=== PATIENT | male | born 1965 | race Hispanic/Latino ===

== ENCOUNTER 2016-12-07 14:40 | Observation (INO) | payer OTHER, SELFPAY ==
[2016-12-07 15:02] LABS: #Basophils 0.1 thou/uL (0.0-0.2); #Eosinphils 0.3 thou/uL (0.0-0.7); #Lymphocytes 3.1 thou/uL (1.20-3.40); #Monocytes 0.7 thou/uL (0.11-0.59); #Neutrophils 5.1 thou/uL (1.40-6.50); %Basophils 1.3 % (0.0-1.0); %Eosinophils 3.2 % (0.0-10.0); %Lymphocytes 32.9 % (21.0-51.0); %Monocytes 7.8 % (0.0-10.0); Hematocrit 48.1 % (42.0-52.0); Mean Platelet Volume 8.1 fL (7.4-10.4); Red Blood Cell (RBC) Count 5.35 mill/uL (4.70-6.10); White Blood Cell (WBC) Count 9.3 thou/uL (4.8-10.8)
--- NOTE | 2016-12-07 15:19 | RAD ---
FRONTAL VIEW CHEST: Comparison: 03-16-16 Indication: Chest pain. FINDINGS: There is mild enlargement of the cardiac silhouette. No significant vascular congestion. Lungs are c lear. Density at the inferior left hemithorax likely related to pericardial fat pad. Stable eventrat ion of medial aspect of the right hemidiaphragm. IMPRESSION: No lobar consolidation. POS: [facility]
[2016-12-07] MEDS ORDERED: Nitroglycerin 0.4 MG TAB (25 Tab Bottle) ONE (15:25)
[2016-12-07 15:27] LABS: Troponin I 0.014 ng/mL (< 0.028)
[2016-12-07 15:29] LABS: ALT (SGPT) 78 U/L (8-55); AST (SGOT) 62 U/L (5-34); Alkaline Phosphatase 124 U/L (40-150); Anion Gap 17 mmol/L (10-20); BUN (Urea Nitrogen) 14 mg/dL (8.9-20.6); Bilirubin, Total 0.5 mg/dL (0.2-1.2); Calc. Creatinine Clearance 0 mL/min (70-130); Calcium 9.3 mg/dL (7.8-10.44); Carbon Dioxide 24 mmol/L (22-29); Chloride 100 mmol/L (98-107); Estimated GFR-MDRD 79; Globulin 4.1 g/dL (2.4-3.5); Lipase 25 U/L (8-78); Protein, Total 7.8 g/dL (6.0-8.3)
[2016-12-07] MEDS ORDERED: Nitroglycerin 2% Ointment 1 INCH/1 GM Packet ONE (16:31)
[2016-12-07] MEDS ORDERED: Acetaminophen 500 MG TAB ONE (16:38)
[2016-12-07] MEDS ORDERED: Ondansetron HCl/PF 4 MG/2 ML Vial IVP PRN (17:34)
[2016-12-07] MEDS ORDERED: Ondansetron ODT 4 MG TAB PO PRN (17:34)
[2016-12-07] MEDS ORDERED: cloNIDine HCl 0.1 MG TAB PO PRN (17:34)
[2016-12-07 17:57] VITALS: BMI 46.5
[2016-12-07] MEDS ORDERED: FLU VACC QS2017-18 36 mo. & older 0.5 ML SYRINGE IM ONE (18:45)
[2016-12-07] MEDS: Famotidine 20 MG TAB PO SCH (20:30)
[2016-12-07] MEDS: Gabapentin 300 MG CAP PO SCH (20:30)
[2016-12-07] MEDS: Acetaminophen 500 MG TAB PO PRN (20:41)
[2016-12-07 21:21] LABS: Troponin I 0.015 ng/mL (< 0.028)
--- NOTE | 2016-12-07 23:59 | HP ---
DATE OF ADMISSION: 12/07/2016 PRIMARY CARE PROVIDER: at the [facility] in [place], [place]. CHIEF COMPLAINT: Chest pain. HISTORY OF PRESENT ILLNESS: This is a 51-year-old male who presents to [facility] with recurrent chest pain. Patient is well known to the hospitalist service with mul tiple admissions for chest pain over the last 10 months. Patient has undergone 2 left heart cardiac catheterizations in March and June 2016 showing mild coronary artery disease with recommendation s for medical management. Patient states that he took his regular home medications in the early mor hemal hours of 12/07/2016 developing some diaphoresis and chest tightness after checking his blood pr essure noted to be in the 200 systolic range. The patient presented to the emergency room for evalu ation after his family members became concerned for possible heart attack or stroke. The patient in itially localizes the pain to the substernal and central chest area with some radiation to the back. The patient states that he slipped on some stairs near his home straining his back, presenting to his primary care provider, receiving oral pain medications in the last 24-48 hours. The patient did exhibit some shortness of breath, diaphoresis with the symptoms receiving some relief after treatme nt in the emergency room to include transdermal nitroglycerin, sublingual nitroglycerin and extra st rength Tylenol. The patient states he has been compliant with his chronic medication regimen. Farnaz ent denies any recent travel history, increased cough, congestion, fever or recent trauma. PAST MEDICAL HISTORY: 1. Recurrent chest pain, questionable angina. 2. Nonischemic cardiomyopathy. 3. Tobacco abuse. 4. Morbid obesity. 5. Dyslipidemia. 6. History of hepatitis C, status post partial treatment. 7. Chronic transaminitis. 8. Gastroesophageal reflux disease. 9. Chronic back pain. PAST SURGICAL HISTORY: 1. Status post cholecystectomy. 2. Status post rotator cuff repair. 3. Status post right hand surgery. 4. Status post left heart catheterization in March and June 2016. CURRENT MEDICATIONS: Based on previous admission; 1. Aspirin 325 mg 1 tab p.o. daily. 2. Gabapentin 300 mg 1 tab p.o. t.i.d. 3. Lisinopril/hydrochlorothiazide 20/25 mg 1 tab p.o. daily. 4. Metoprolol tartrate 25 mg 1 tab p.o. b.i.d. 5. Pravachol 20 mg p.o. at bedtime. 6. Ultram 50 mg 1 tab p.o. q.6 hours p.r.n. pain. ALLERGIES: No known drug allergies. FAMILY HISTORY: Positive for coronary artery disease in father who of complications of heart f ailure at the age of 43. SOCIAL HISTORY: The patient is , accompanied by his . History of marijuana use. Smoked up to a pack of cigarettes daily. Quit smoking over 10 years prior to this evaluation. No alcohol use. Works as a construction driver. REVIEW OF SYSTEMS: The following complete review of systems was negative, unless otherwise mentione d in the HPI or below: Constitutional: Weight loss or gain, ability to conduct usual activities. Skin: Rash, itching. Eyes: Double vision, pain. ENT/Mouth: Nose bleeding, neck stiffness, pain, tenderness. Cardiovascular: Palpitations, dyspnea on exertion, orthopnea. Respiratory: Shortnes s of breath, wheezing, cough, hemoptysis, fever or night sweats. Gastrointestinal: Poor appetite, abdominal pain, heartburn, nausea, vomiting, constipation, or diarrhea. Genitourinary: Urgency, frequency, dysuria, nocturia. Musculoskeletal: Pain, swelling. Neurologic/Psychiatric: Anxiety, depression. Allergy/Immunolo gic: Skin rash, bleeding tendency. Otherwise, negative except as stated per HPI. PHYSICAL EXAMINATION: VITAL SIGNS: On admission, blood pressure 104/65, pulse 57, respiratory rate 18, temperature 98.5 d egrees Fahrenheit, O2 saturation 94% on room air. GENERAL APPEARANCE: This is a 51-year-old male, alert and oriented x3, pleasant, conversan t, in no acute distress. HEENT: Pupils are equal, round, and reactive to light and accommodation. Extraocular muscles are i ntact. No scleral icterus, no conjunctival injection. Nares patent. OP is clear. Teeth in fair r epair. NECK: Supple, no cervical adenopathy, no thyromegaly, no carotid bruits, no JVD appreciated. Cervi conrad spine with full active and passive range of motion. CHEST: Lungs are clear to auscultation bilaterally with diminished breath sounds in the bases bilat erally. CARDIOVASCULAR: S1, S2, without noted murmur. Heart sounds distant. Positive tenderness to palpat ion of the anterior chest wall in the parasternal region. ABDOMEN: Obese, soft, nontender, nondistended. Bowel sounds are positive in all four quadrants. L andmarks are difficult to palpate due to patient's body habitus. EXTREMITIES: Warm and dry with fair turgor. No clubbing, cyanosis or asymmetric edema appreciated. Pulses palpable distally at the dorsalis pedis, posterior tibial, and popliteal arteries bilateral ly. Capillary refill less than 2 seconds. NEUROLOGIC: Cranial nerves II-XII are grossly intact. No focal or lateralizing signs appreciated. PERTINENT LABORATORY AND X-RAY FINDINGS: Sodium 136, potassium 4.5, chloride 100, CO2 of 24, BUN 14 , creatinine 1.0, glucose 158, calcium 9.3, AST 62, ALT of 78, alkaline phosphatase 124, total CK 3 85, CK-MB 11.8, troponin I of 0.014. BNP 50. Albumin 3.7, lipase 25. CBC showed a white blood dimitris l count 9.3, hemoglobin 16, hematocrit 48, platelet count 189 with 55% neutrophils. Portable chest x-ray dated 12/07/2016 showed no acute cardiopulmonary process. Left heart catheterization dated showed normal coronary anatomy. Nonischemic cardiomyopathy. A 2D transthoracic echocardio gram dated 03/17/2016 showed ejection fraction of 35-40%. Mild to moderate mitral valve regurgitati on. EKG dated 12/07/2016 by my interpretation shows sinus bradycardia with heart rates in the 50s. Normal R-wave progression noted in the precordial leads. Normal axis. No acute ST-T wave changes appreciated. ASSESSMENT AND PLAN: 1. Chest pain. Patient will be observed on the telemetry unit. Exact etiology unclear. Patient w ith component of chest wall and musculoskeletal chest pain. We will continue serial cardiac enzymes q.3 hours x2. Continue aspirin 325 mg daily. We will consult Cardiology Service in the a.m. for a ny further recommendations given patient's recent left heart cardiac catheterization in 03/2016. Yrn blank may benefit from a long-acting nitrate on discharge. 2. Hypertension. We will resume patient's home antihypertensive regimen and monitor clinical respo nse. 3. Hyperlipidemia. Check fasting lipid profile in the a.m. Continue Pravachol 20 mg p.o. at [facility]. 4. Morbid obesity. We will offer dietary counseling. Low-fat diet. 5. Transaminitis. Chronic upon review of the electronic medical record. Continue symptomatic and supportive management. 6. Prophylaxis. Sequential compression devices while in bed. Pepcid 20 mg p.o. b.i.d. 8. CODE STATUS IS FULL. Surrogate medical decision maker is patient's spouse.
[2016-12-08] MEDS: Acetaminophen 500 MG TAB PO PRN ×2 (03:27→08:53)
[2016-12-08 04:36] LABS: Anion Gap 13 mmol/L (10-20); BUN (Urea Nitrogen) 15 mg/dL (8.9-20.6); Calc. Creatinine Clearance 165 mL/min (70-130); Calcium 8.9 mg/dL (7.8-10.44); Carbon Dioxide 27 mmol/L (22-29); Chloride 102 mmol/L (98-107); Cholesterol 133 mg/dl (< 200 Desired); Estimated GFR-MDRD 72; LDL Cholesterol, Calculated 40 mg/dL
[2016-12-08 04:57] LABS: Band 3 % (5-11); Hematocrit 48.8 % (42.0-52.0); Mean Platelet Volume 8.1 fL (7.4-10.4); Neutrophil 55 % (42-75); Red Blood Cell (RBC) Count 5.41 mill/uL (4.70-6.10); White Blood Cell (WBC) Count 9.1 thou/uL (4.8-10.8)
[2016-12-08 07:49] VITALS: BP 165/94; TEMP 97.8
[2016-12-08] MEDS: Famotidine 20 MG TAB PO SCH (08:52)
[2016-12-08] MEDS: Gabapentin 300 MG CAP PO SCH (08:52)
[2016-12-08] MEDS ORDERED: Aspirin 325 MG TAB PO SCH (09:00)
[2016-12-08] MEDS ORDERED: Furosemide 20 MG TAB PO SCH (09:00)
[2016-12-08] MEDS ORDERED: Pravastatin Sodium 20 MG TAB PO SCH (09:00)
[2016-12-08] MEDS ORDERED: Multivitamin W/ Minerals 1 TAB PO SCH (09:00)
[2016-12-08] MEDS ORDERED: Lisinopril/Hydrochlorothiazide 20/25 mg Tablet PO SCH (09:00)
[2016-12-08] MEDS ORDERED: Metoprolol Tartrate 25 MG TAB PO SCH (09:00)
[2016-12-08] MEDS ORDERED: Non-Formulary Item 1 EACH (Potassium [Potassium] 99 MG) PO SCH (09:00)
--- NOTE | 2016-12-08 13:48 | DIS ---
DATE OF ADMISSION: 12/07/2016 DATE OF DISCHARGE: 12/08/2016 DISCHARGE DIAGNOSES: 1. Chest pain secondary to musculoskeletal origin. 2. Hypertension, labile. 3. Morbid obesity. 4. Coronary artery disease, chronic and stable. 5. Nonischemic cardiomyopathy, compensated. 6. Tobacco use. 7. Hyperlipidemia with primary hypertriglyceridemia. CONSULTATION: Dr. Engle with Cardiology Service. PERTINENT LABORATORY DATA AND X-RAY FINDINGS: Troponin I negative x3. BNP 50. Total cholesterol 1 33, triglycerides 330, HDL 27, LDL 40. CBC within normal limits. Portable chest x-ray dated 2016 showed no acute cardiopulmonary process. HOSPITAL COURSE: Patient was observed on the telemetry unit after initially presenting with chest p ain in the context of known mild coronary artery disease, medically managed. The patient underwent serial cardiac enzymes, which were negative x3. Telemetry monitoring showed sinus bradycardia witho ut evidence of acute arrhythmia or dysrhythmia. The patient was evaluated by the Cardiology Service due to history of mild coronary artery disease and recent left heart cardiac catheterization in 2016. Current recommendations were to continue medical management and daily aspirin. No current ev idence to suggest acute coronary syndrome and patient's symptomatology consistent with musculoskelet al origin chest pain. The patient overall clinically stable and ready for discharge on 12/08/2016. DISCHARGE MEDICATIONS: 1. Aspirin 325 mg 1 tablet p.o. daily. 2. Lasix 20 mg 1 tablet p.o. daily. 3. Neurontin 300 mg p.o. t.i.d. 4. DuoNeb 3 mL nebulized q.i.d. p.r.n. 5. Lisinopril/hydrochlorothiazide 20/25 mg 1 tablet p.o. daily. 6. Lopressor 50 mg 1 tablet p.o. daily. 7. Multivitamin 1 tablet p.o. daily. 8. Naproxen 500 mg p.o. b.i.d. p.r.n. 9. Potassium 99 mg p.o. daily. 10. Pravachol 20 mg p.o. daily. FOLLOWUP: Patient may follow up with [facility] in [place], [place] within 7 days of discharge. CONDITION ON DISCHARGE: Stable. ACTIVITY: Ad-milana. DIET: Heart healthy. CODE STATUS: FULL. DISPOSITION: Home on 12/08/2016.
--- NOTE | 2016-12-08 14:44 | CON ---
DATE OF CONSULTATION: 12/08/2016 REASON FOR CONSULTATION: Chest pain. REFERRING PROVIDER: Dr. Mann. HISTORY OF PRESENT ILLNESS: Mr. Pacheco is a 51-year-old gentleman who I have seen and evaluated in the past. Mr. Pacheco underwent coronary angiography within the last year with no significant kian nary disease. Most recently, he presented with low back pain. He then developed diaphoresis. He states the pain was moderate to severe. He also developed chest tightness which was not as severe as his previous e pisode. He states he has had a recent URI. He states cough and deep breath seemed to make the pain worse. PAST MEDICAL HISTORY: Nonischemic cardiomyopathy, tobacco abuse, obesity, hepatitis C, and acid ref lux. PAST SURGICAL HISTORY: Cholecystectomy, right hand surgery, and rotator cuff surgery. HOME MEDICATIONS: Include aspirin, gabapentin, lisinopril/hydrochlorothiazide, metoprolol, Pravacho l, and Ultram. ALLERGIES: None. FAMILY HISTORY: Positive for CAD. REVIEW OF SYSTEMS: Ten-point review of systems is reviewed and is as above, otherwise negative. PHYSICAL EXAMINATION: GENERAL: The patient is a pleasant male who is in no acute distress. The patient appears his stated age. VITAL SIGNS: Blood pressure 140/70, pulse 80, and respirations 20. NEUROLOGIC: The patient is alert and oriented times 3 with no focal neurologic deficits. HEENT: Sclerae without icterus. Mouth has moist mucous membranes with normal pallor. NECK: No JVD. Carotid upstroke brisk. No bruits bilaterally. LUNGS: Clear to auscultation with unlabored respirations. BACK: No scoliosis or kyphosis. CARDIAC: Regular rate and rhythm with normal S1 and S2. No S3 or S4 noted. No significant rubs, murmurs, thrills, or gallops noted throughout the precordium. PMI is not displaced. There is no parasternal heave. ABDOMEN: Soft, nontender, nondistended. No peritoneal signs present. No hepatosplenomegaly. No abnormal striae. EXTREMITIES: 2+ femoral and 2+ dorsalis pedis pulses. No cyanosis, clubbing, or edema. SKIN: No gross abnormalities. PERTINENT LABS: CK and troponin negative. EKG: Normal sinus rhythm, normal EKG. IMPRESSION: 1. Atypical chest pain. 2. Chronic low back pain. 3. Nonischemic cardiomyopathy. RECOMMENDATIONS: Mr. Pacheco's symptoms are more related to musculoskeletal etiology, given worseni ng symptoms with cough or deep breath. He also underwent coronary angiography within the last year and it was negative for significant coronary disease. At this point, we will treat medically. We w ould consider ibuprofen in addition to a PPI versus a H2 juan antonio. From my standpoint, I have no fur ther recommendations. Plan is to follow up with Mr. Pacheco in the next 1-2 weeks.
== END 2016-12-08 11:25 | disposition home or self-care (01) ==
LOC: ERS 14:40 → 2SW 16:16
PROVIDERS: ADMIT Family Medicine; ATTEND Family Medicine
DX: R07.89 Other chest pain (principal); I10 Essential (primary) hypertension; I25.10 Atherosclerotic heart disease of native coronary artery without angina pectoris; I42.9 Cardiomyopathy, unspecified; E78.5 Hyperlipidemia, unspecified; B19.20 Unspecified viral hepatitis C without hepatic coma; K21.9 Gastro-esophageal reflux disease without esophagitis; R74.0 Nonspecific elevation of levels of transaminase and lactic acid dehydrogenase [LDH]; G89.29 Other chronic pain; F17.210 Nicotine dependence, cigarettes, uncomplicated; E66.01 Morbid (severe) obesity due to excess calories; Z68.42 Body mass index [BMI] 45.0-49.9, adult; Z79.82 Long term (current) use of aspirin; Z79.899 Other long term (current) drug therapy; Z90.49 Acquired absence of other specified parts of digestive tract; Z98.890 Other specified postprocedural states
CPT/HCPCS: 36415; 71010; 80048; 80053; 80061; 82553; 83690; 83880; 84484; 85007; 85025; 85027; 90471; 90682; 90732; 93005; 94640; 94760; G0008; G0009; G0378; J7620; Q2036

== ENCOUNTER 2017-06-08 06:42 | Emergency (ER) | payer MEDICAID, OTHER, SELFPAY ==
[2017-06-08] MEDS ORDERED: Bupivacaine 0.25% 10 ML VIAL ONE (07:14)
[2017-06-08] MEDS ORDERED: Ketorolac Tromethamine 60 MG/2 ML VIAL ONE (07:35)
== END 2017-06-08 08:33 | disposition home or self-care (01) ==
LOC: ERS 06:42
DX: K08.89 Other specified disorders of teeth and supporting structures (principal); I50.9 Heart failure, unspecified; I11.0 Hypertensive heart disease with heart failure; E78.5 Hyperlipidemia, unspecified; E66.9 Obesity, unspecified; Z87.891 Personal history of nicotine dependence; Z79.82 Long term (current) use of aspirin; Z79.899 Other long term (current) drug therapy
CPT/HCPCS: 64400; 96372; J1885; S0020

== ENCOUNTER 2017-06-09 16:58 | Emergency (ER) | payer MEDICAID, SELFPAY ==
[2017-06-09] MEDS ORDERED: cloNIDine 0.1 MG TAB ONE (19:57)
[2017-06-09] MEDS ORDERED: Acetaminophen 500 MG TAB ONE (19:58)
[2017-06-09] MEDS ORDERED: Lidocaine 1% w/Epinephrine 1:100K 20 ML VIAL ONE (20:48)
[2017-06-09 21:26] LABS: #Basophils 0.1 thou/uL (0.0-0.2); #Eosinphils 0.4 thou/uL (0.0-0.7); #Lymphocytes 1.9 thou/uL (1.20-3.40); #Monocytes 1.1 thou/uL (0.11-0.59); #Neutrophils 4.8 thou/uL (1.40-6.50); %Eosinophils 4.3 % (0.0-10.0); %Lymphocytes 23.1 % (21.0-51.0); %Monocytes 13.1 % (0.0-10.0); %Neutrophils 58.5 % (42.0-75.0); Hemoglobin 16.1 g/dL (14.0-18.0); Mean Corpuscular HGB CONC 34.6 g/dL (32.0-36.0); Mean Corpuscular Hemoglobin 30.3 pg (27.0-31.0); Mean Corpuscular Volume 87.8 fl (80.0-94.0); Mean Platelet Volume 8.1 fL (7.4-10.4); Platelet Count 172 thou/uL (130-400); RBC Distribution Width 12.1 % (11.5-14.5); Red Blood Cell (RBC) Count 5.31 mill/uL (4.70-6.10); White Blood Cell (WBC) Count 8.2 thou/uL (4.8-10.8)
[2017-06-09 21:33] LABS: PTT 30.2 SEC (22.9-36.1); Prothrombin Time 12.9 SEC (12.0-14.7)
[2017-06-09] MEDS ORDERED: Tranexamic Acid 650 MG TAB PO SCH (23:30)
== END 2017-06-10 00:39 | disposition home or self-care (01) ==
LOC: ERS 16:58
DX: K91.840 Postprocedural hemorrhage of a digestive system organ or structure following a digestive system procedure (principal); E78.5 Hyperlipidemia, unspecified; E66.9 Obesity, unspecified; I11.0 Hypertensive heart disease with heart failure; I50.9 Heart failure, unspecified; Z87.891 Personal history of nicotine dependence; Z79.82 Long term (current) use of aspirin; Z79.899 Other long term (current) drug therapy
CPT/HCPCS: 36415; 85025; 85610; 85730; 99283; J2001

== ENCOUNTER 2018-01-09 12:39 | Outpatient (CLI) | payer MEDICAID, OTHER ==
--- NOTE | 2018-01-09 14:14 | RAD ---
CHEST TWO VIEWS: History: Dyspnea. Comparison: 12-07-16 FINDINGS: Cardiac silhouette is unremarkable. Pulmonary vasculature upper limits of normal. Mediastinum is midl ine. No confluent airspace consolidation, pneumothorax, or pleural fluid. IMPRESSION: No active cardiopulmonary abnormalities are demonstrated. POS: [facility]
== END 2018-01-09 12:40 | disposition home or self-care (01) ==
LOC: RAD 12:39
PROVIDERS: ATTEND Internal Medicine Critical Care Medicine
DX: R06.00 Dyspnea, unspecified (principal)
CPT/HCPCS: 71046

== ENCOUNTER 2018-01-18 08:52 | Outpatient (CLI) | payer OTHER | END 2018-01-18 08:53 | disposition home or self-care (01) | LOC: CP 08:52 | PROVIDERS: ATTEND Internal Medicine Critical Care Medicine | DX: J44.9 Chronic obstructive pulmonary disease, unspecified (principal); G47.33 Obstructive sleep apnea (adult) (pediatric) | CPT/HCPCS: 94060; 94727 ==

== ENCOUNTER 2018-02-06 08:00 | Outpatient (CLI) | payer MEDICAID | END 2018-02-06 08:01 | disposition home or self-care (01) | LOC: SLEEPLAB 08:00 | PROVIDERS: ATTEND Internal Medicine Critical Care Medicine | DX: G47.33 Obstructive sleep apnea (adult) (pediatric) (principal); R09.89 Other specified symptoms and signs involving the circulatory and respiratory systems; R06.83 Snoring; R53.83 Other fatigue; R40.0 Somnolence; E66.9 Obesity, unspecified; Z68.43 Body mass index [BMI] 50.0-59.9, adult | CPT/HCPCS: 94729; 95811 ==

== ENCOUNTER 2018-02-13 17:58 | Emergency (ER) | payer OTHER ==
[~2018-02-13 17:58] MED LIST: Iopamidol 370 76% 100 ML VIAL ONE
[2018-02-13 19:10] LABS: #Basophils 0.1 thou/uL (0.0-0.2); #Eosinphils 0.2 thou/uL (0.0-0.7); #Monocytes 0.8 thou/uL (0.11-0.59); #Neutrophils 7.3 thou/uL (1.40-6.50); %Basophils 0.9 % (0.0-1.0); %Eosinophils 1.6 % (0.0-10.0); %Lymphocytes 19.3 % (21.0-51.0); %Monocytes 7.7 % (0.0-10.0); %Neutrophils 70.6 % (42.0-75.0); Hemoglobin 16.3 g/dL (14.0-18.0); Mean Corpuscular HGB CONC 33.7 g/dL (32.0-36.0); Mean Corpuscular Hemoglobin 29.6 pg (27.0-31.0); Mean Corpuscular Volume 87.8 fL (78.0-98.0); Mean Platelet Volume 8.3 fL (7.4-10.4); Platelet Count 191 thou/uL (130-400); RBC Distribution Width 12.3 % (11.5-14.5); White Blood Cell (WBC) Count 10.3 thou/uL (4.8-10.8)
[2018-02-13 19:15] LABS: PTT 27.6 SEC (22.9-36.1); Prothrombin Time 13.7 SEC (12.0-14.7)
[2018-02-13 19:31] LABS: ALT (SGPT) 74 U/L (8-55); AST (SGOT) 51 U/L (5-34); Albumin 3.7 g/dL (3.5-5.0); Alkaline Phosphatase 129 U/L (40-150); Anion Gap 13 mmol/L (10-20); BUN (Urea Nitrogen) 17 mg/dL (8.4-25.7); Bilirubin, Total 0.6 mg/dL (0.2-1.2); Calc. Creatinine Clearance 0 mL/min (70-130); Calcium 8.9 mg/dL (7.8-10.44); Carbon Dioxide 22 mmol/L (22-29); Chloride 104 mmol/L (98-107); Estimated GFR-MDRD 65; Globulin 3.5 g/dL (2.4-3.5); Glucose 146 mg/dL (70-105); Potassium 4.1 mmol/L (3.5-5.1); Protein, Total 7.2 g/dL (6.0-8.3); Sodium 135 mmol/L (136-145)
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
--- NOTE | 2018-02-13 19:40 | RAD ---
RIGHT WRIST THREE VIEWS: FINDINGS: There are some arthrosis and degenerative changes, including some intraosseous cystic changes. Posit cheng ulnar variance. Deformity of the fifth metacarpal, evidence for old healed injury. On the la teral view, the ulna has a somewhat more posterior or dorsal position. I favor this to be just po sitional, although it is conceivable that it could represent some distal radial ulnar subluxation. C orrelate clinically. IMPRESSION: 1. Positive ulnar variance. 2. Deformity of the fifth metacarpal, evidence for old healed injury. 3. No evidence for acute fracture. 4. Somewhat dorsally positioned ulna on the lateral view. I favor this being just positional. If there is clinical concern for distal radial ulnar subluxation/dislocation, a follow-up CT scan m ight be considered. There is no significant associated focal soft tissue swelling in this region. POS: [facility]
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
[2018-02-13] MEDS ORDERED: Ketorolac Tromethamine 30 MG/ML VIAL ONE (19:57)
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
--- NOTE | 2018-02-15 15:44 | EKG ---
Test Reason : Blood Pressure : / mmHG Vent. Rate : 060 BPM Atrial Rate : 060 BPM P-R Int : 160 ms QRS Dur : 120 ms QT Int : 480 ms P-R-T Axes : -20 031 028 degrees QTc Int : 480 ms Normal sinus rhythm with sinus arrhythmia Cannot rule out Inferior infarct , age undetermined Abnormal ECG Confirmed by STARLA GREGORY, JESUS MANUEL ([id number]), editor & co founder AAKASH CUMMINS ([id number]) on 02/15/2018 3:44:05 PM Referred By: Confirmed By:JESUS MANUEL CHA MD
== END 2018-02-13 21:10 | disposition home or self-care (01) ==
LOC: ERS 17:58
DX: S90.511A Abrasion, right ankle, initial encounter (principal); R07.89 Other chest pain; M54.2 Cervicalgia; M25.531 Pain in right wrist; M25.532 Pain in left wrist; V89.2XXA Person injured in unspecified motor-vehicle accident, traffic, initial encounter
CPT/HCPCS: 36415; 70450; 71260; 72125; 80053; 85025; 85610; 85730; 93005; 96374; J1885

== ENCOUNTER 2018-02-21 12:37 | Day surgery (SDC) | payer OTHER ==
[2018-02-21] MEDS ORDERED: PROPOFOL 200 MG/20 ML VIAL ONE (12:45)
--- NOTE | 2018-02-21 20:18 | OP ---
DATE OF PROCEDURE: 02/21/2018 PROCEDURES PERFORMED: Esophagogastroduodenoscopy with biopsy and esophageal dilation over guidewire and colonoscopy with snare polypectomy and biopsy. PREOPERATIVE DIAGNOSES: Dysphagia, gastroesophageal reflux, and chronic diarrhea. DESCRIPTION OF PROCEDURE: Informed consent was obtained from the patient. He was sedated with total intravenous anesthesia. The bite block was placed, and the endoscope was advanced easily to the second portion of the duodenum, and retroflexion was performed in the stomach. The esophagus was normal. The esophagus was biopsied to rule out eosinophilic esophagitis. An 18 mm Savary dilator was passed over guidewire and second-look endoscopy showed no change in the esophagus after dilation. The stomach had diffuse erythematous gastritis in the antrum and distal body. The retroflexed views in the stomach were unremarkable. Biopsies were obtained from the stomach to rule out H. pylori. First and second portions of the duodenum were normal. Biopsies were obtained to rule out celiac disease. The patient was turned around. Rectal exam was performed and was normal. The colonoscope was advanced without difficulty to the terminal ileum. The mucosa of the terminal ileum was normal. The preparation quality was good. There was a flat, pale polyp in the transverse colon that could be serrated-type polyp. This was removed by snare cautery polypectomy. This measured 5 to 6 mm. A second similar appearing polyp within the descending colon and measured 4 cm. This was obliterated with snare polypectomy. The rest of the colon was normal including retroflexed views in the rectum. IMPRESSION: 1. Diffuse erythematous gastritis, biopsied. 2. Otherwise normal esophagogastroduodenoscopy. Duodenal biopsies were obtained. Esophageal biopsies were obtained. An 18 mm Savary dilator was passed over a guidewire with no change on second look of the esophagus. 3. A 5 mm to 6 mm flat polyp was removed from the transverse colon. This could be a serrated polyp versus hyperplastic. 4. A 4 mm descending polyp, which was in similar appearance was ablated with snare cautery polypectomy. 5. Otherwise normal ileocolonoscopy. Random biopsies were taken from the right and left colon to rule out microscopic colitis. RECOMMENDATIONS: 1. Await histopathology. 2. Follow up in GI Clinic. 3. Timing of surveillance colonoscopy will be determined by pathology results. Job ID: [id number]
== END 2018-02-21 16:08 | disposition home or self-care (01) ==
LOC: SDC 12:37
PROVIDERS: ATTEND Internal Medicine Gastroenterology
PROC: 0DBM8ZX Excision of Descending Colon, Via Natural or Artificial Opening Endoscopic, Diagnostic (ICD-10-PCS; principal; 2018-02-21)
PROC: 0DB68ZX Excision of Stomach, Via Natural or Artificial Opening Endoscopic, Diagnostic (ICD-10-PCS; principal; 2018-02-21)
PROC: 0DB58ZX Excision of Esophagus, Via Natural or Artificial Opening Endoscopic, Diagnostic (ICD-10-PCS; principal; 2018-02-21)
PROC: 0D758ZZ Dilation of Esophagus, Via Natural or Artificial Opening Endoscopic (ICD-10-PCS; principal; 2018-02-21)
PROC: 0DBL8ZX Excision of Transverse Colon, Via Natural or Artificial Opening Endoscopic, Diagnostic (ICD-10-PCS; principal; 2018-02-21)
PROC: 0DB98ZX Excision of Duodenum, Via Natural or Artificial Opening Endoscopic, Diagnostic (ICD-10-PCS; principal; 2018-02-21)
DX: K63.5 Polyp of colon (principal); K52.9 Noninfective gastroenteritis and colitis, unspecified; K29.70 Gastritis, unspecified, without bleeding; K21.9 Gastro-esophageal reflux disease without esophagitis; R13.10 Dysphagia, unspecified; M19.90 Unspecified osteoarthritis, unspecified site; E78.00 Pure hypercholesterolemia, unspecified; I11.0 Hypertensive heart disease with heart failure; I50.9 Heart failure, unspecified; F17.200 Nicotine dependence, unspecified, uncomplicated; B18.2 Chronic viral hepatitis C; Z79.1 Long term (current) use of non-steroidal anti-inflammatories (NSAID); Z79.899 Other long term (current) drug therapy
CPT/HCPCS: 88305; 88312; 88313

== ENCOUNTER 2018-03-01 09:53 | Emergency (ER) | payer OTHER ==
[2018-03-01 10:45] LABS: #Basophils 0.1 thou/uL (0.0-0.2); #Eosinphils 0.3 thou/uL (0.0-0.7); #Lymphocytes 2.4 thou/uL (1.20-3.40); #Monocytes 0.6 thou/uL (0.11-0.59); #Neutrophils 5.6 thou/uL (1.40-6.50); %Basophils 1.1 % (0.0-1.0); %Eosinophils 2.9 % (0.0-10.0); %Lymphocytes 27.3 % (21.0-51.0); %Monocytes 6.8 % (0.0-10.0); Hemoglobin 13.9 g/dL (14.0-18.0); Mean Corpuscular HGB CONC 33.3 g/dL (32.0-36.0); Mean Corpuscular Hemoglobin 29.2 pg (27.0-31.0); Mean Corpuscular Volume 87.7 fL (78.0-98.0); Mean Platelet Volume 8.5 fL (7.4-10.4); Platelet Count 210 thou/uL (130-400); RBC Distribution Width 12.2 % (11.5-14.5); Red Blood Cell (RBC) Count 4.76 mill/uL (4.70-6.10)
[2018-03-01 10:58] LABS: INR-International Normal Ratio 1.1; PTT 29.5 SEC (22.9-36.1)
[2018-03-01 11:06] LABS: ALT (SGPT) 62 U/L (8-55); AST (SGOT) 49 U/L (5-34); Albumin 3.4 g/dL (3.5-5.0); Alkaline Phosphatase 143 U/L (40-150); Anion Gap 12 mmol/L (10-20); BUN (Urea Nitrogen) 21 mg/dL (8.4-25.7); Bilirubin, Total 0.4 mg/dL (0.2-1.2); Calc. Creatinine Clearance 0 mL/min (70-130); Calcium 8.3 mg/dL (7.8-10.44); Carbon Dioxide 23 mmol/L (22-29); Chloride 108 mmol/L (98-107); Estimated GFR-MDRD 63; Globulin 3.3 g/dL (2.4-3.5); Glucose 142 mg/dL (70-105); Potassium 4.5 mmol/L (3.5-5.1); Protein, Total 6.7 g/dL (6.0-8.3); Sodium 138 mmol/L (136-145)
--- NOTE | 2018-03-01 15:26 | CT ---
CT ABDOMEN AND PELVIS WITH IV CONTRAST: HISTORY: A 52-year-old male with a history of diarrhea, blood in stool, and hemorrhoids. FINDINGS: The lung bases are clear. There are multiple surgical clips associated with post cholecystectomy jerrod nges. There is one elongated, metal density, probably clip, in the mid abdomen, at approximately the level of the umbilicus, which appears to be within the mesentery, immediately adjacent to bowel. Th ere is some enlargement, particularly of the left lobe of the liver. The pancreas, spleen, and adren al glands are unremarkable. Small right renal hypodensity, statistically a small cyst. Small, nonob structing right renal calculus. No CT evidence for acute appendicitis. Minimal sigmoid colon divert iculosis without diverticulitis. IMPRESSION: 1. Nonobstructing right renal calculus. 2. Iem-feevd-ee-characterize right renal hypodensity, probably a small cyst. 3. Prominent left lobe of liver. 4. Status post cholecystectomy without ductal dilatation. 5. Several scattered, elongated, metallic densities within the abdomen, including one in the central abdomen, anteriorly, which appears to be within the mesentery, in very close proximity to small flakita l loops. 6. No bowel obstruction, abscess, adenopathy, or abnormal fluid collection. 7. No CT evidence for acute appendicitis. 8. Minimal colonic diverticulosis without acute diverticulitis. POS: [facility]
== END 2018-03-01 15:44 | disposition home or self-care (01) ==
LOC: ERS 09:53
DX: K62.5 Hemorrhage of anus and rectum (principal); E78.5 Hyperlipidemia, unspecified; I11.0 Hypertensive heart disease with heart failure; I50.9 Heart failure, unspecified; E66.9 Obesity, unspecified; F17.210 Nicotine dependence, cigarettes, uncomplicated; Z79.899 Other long term (current) drug therapy
CPT/HCPCS: 36415; 74177; 80053; 85025; 85610; 85730; 86850; 86900; 86901

== ENCOUNTER 2018-08-21 09:09 | Outpatient (CLI) | payer MEDICAID ==
--- NOTE | 2018-08-21 11:20 | RAD ---
LEFT WRIST THREE VIEWS: HISTORY: Left wrist pain. Tenosynovitis. FINDINGS: The carpals appear normally aligned. No fracture identified. Mild degenerative change at the first carpometacarpal joint. IMPRESSION: No acute findings. POS: [facility]
== END 2018-08-21 09:10 | disposition home or self-care (01) ==
LOC: BICRAD 09:09
PROVIDERS: ATTEND Internal Medicine
DX: M65.832 Other synovitis and tenosynovitis, left forearm (principal)

== ENCOUNTER 2018-09-22 09:38 | Outpatient (CLI) | payer OTHER ==
--- NOTE | 2018-09-22 10:12 | CT ---
EXAM: CT abdomen and pelvis with IV contrast PROVIDED CLINICAL HISTORY: Abdominal pain COMPARISON: 03/01/2018 FINDINGS: The visualized lung bases are free of significant opacity. The solid abdominal organs demonstrate no acute abnormality. Stable nonobstructing 4-5 mm right renal calculus. Changes of prior cholecystectomy. There is no bowel dilatation, inflammatory fat stranding, free fluid or free air apparent. There is n o evidence for appendicitis. No regional lymph node enlargement apparent. The regional major vascular structures appear unremarkab le. The osseous structures demonstrate no concerning lytic or blastic lesions. IMPRESSION: No evidence for an acute process.
== END 2018-09-22 09:39 | disposition home or self-care (01) ==
LOC: BICCT 09:38
PROVIDERS: ATTEND Physician Assistant Medical
DX: B18.2 Chronic viral hepatitis C (principal); R10.9 Unspecified abdominal pain; K21.9 Gastro-esophageal reflux disease without esophagitis; R19.7 Diarrhea, unspecified
CPT/HCPCS: 74177

== ENCOUNTER 2018-10-23 15:55 | Outpatient (CLI) | payer OTHER ==
--- NOTE | 2018-10-23 16:32 | RAD ---
XR Lumbar Spine 2 Or 3 View: 10/23/2018 12:00 AM CLINICAL INDICATION: Lumbar spine arthritis, pain COMPARISON: None. FINDINGS: Limited assessment due to underpenetration. Fracture:No compression deformity Arthropathy:Multilevel facet osteophytes and endplate degenerative change present. Incidental findings:None of significance. IMPRESSION: 1. No acute osseous abnormality.
== END 2018-10-23 15:56 | disposition home or self-care (01) ==
LOC: BICRAD 15:55
PROVIDERS: ATTEND Internal Medicine
DX: M46.96 Unspecified inflammatory spondylopathy, lumbar region (principal)
CPT/HCPCS: 72100

== ENCOUNTER 2019-02-04 06:38 | Emergency (ER) | payer OTHER ==
[2019-02-04] MEDS ORDERED: Ketorolac Tromethamine 60 MG/2 ML VIAL ONE (07:54)
--- NOTE | 2019-02-04 09:59 | RAD ---
PA CHEST AND LEFT RIBS: A total of 4 views HISTORY: Left side chest pain. FINDINGS: Lung bernardo appear clear on the PA chest. Left ribs appear intact. No fracture or rib lesion identified. IMPRESSION: No acute findings. POS: [facility]
== END 2019-02-04 08:32 | disposition home or self-care (01) ==
LOC: ERS 06:38
DX: S29.011A Strain of muscle and tendon of front wall of thorax, initial encounter (principal); I11.0 Hypertensive heart disease with heart failure; I50.9 Heart failure, unspecified; E66.9 Obesity, unspecified; M19.90 Unspecified osteoarthritis, unspecified site; F17.210 Nicotine dependence, cigarettes, uncomplicated; Z79.891 Long term (current) use of opiate analgesic; Z79.899 Other long term (current) drug therapy; Z79.51 Long term (current) use of inhaled steroids; X50.1XXA Overexertion from prolonged static or awkward postures, initial encounter
CPT/HCPCS: 96372; J1885

== ENCOUNTER 2019-04-26 09:43 | Outpatient (CLI) | payer OTHER ==
--- NOTE | 2019-04-26 10:41 | ULT ---
Exam: Hepatic ultrasound including color and spectral Doppler imaging: HISTORY: Hep C FINDINGS: Hepatomegaly with increased liver echogenicity evidence for fatty change. Status post cholecystectomy. Common bile duct 0.8 cm. Normal size spleen. Pancreas is mostly obscured. Antegrade hepatic and portal venous flow. No abnormal fluid collection. IMPRESSION: Hepatomegaly with fatty change. Antegrade hepatic and portal venous flow.
== END 2019-04-26 09:44 | disposition home or self-care (01) ==
LOC: BICULT 09:43
PROVIDERS: ATTEND Physician Assistant Medical
DX: Z86.19 Personal history of other infectious and parasitic diseases (principal); R16.0 Hepatomegaly, not elsewhere classified; K76.0 Fatty (change of) liver, not elsewhere classified
CPT/HCPCS: 76705

== ENCOUNTER 2019-08-31 12:01 | Outpatient (CLI) | payer OTHER ==
--- NOTE | 2019-08-31 13:53 | RAD ---
EXAM: CHEST TWO VIEWS: 08/31/19 HISTORY: Cough, shortness of breath. FINDINGS: Heart size is upper range of normal. Large body habitus lowers the sensitivity of this study. Mild in creased bronchovascular markings with some possible slight nodular patchy infiltrates or ground glass opacities over the mid lung zones and lower lung zones. No confluent lobar pneumonia. No pleural eff usion. IMPRESSION: Increased markings bilaterally. Possible mild bilateral patchy ground glass opacity changes. No pleur al effusion. Please correlate with COVID-19 laboratory findings. POS: AH
== END 2019-08-31 12:02 | disposition home or self-care (01) ==
LOC: BICRAD 12:01
PROVIDERS: ATTEND Internal Medicine
DX: J44.9 Chronic obstructive pulmonary disease, unspecified (principal); J98.4 Other disorders of lung
CPT/HCPCS: 71046

== ENCOUNTER 2019-09-18 09:19 | Outpatient (CLI) | payer OTHER ==
--- NOTE | 2019-09-18 09:46 | RAD ---
PA AND LATERAL CHEST: HISTORY: Fluid in the lungs. Infiltrate noted on previous exam. COMPARISON: Chest x-rays of 09/08/2019 and 08/31/2019. FINDINGS: Heart size is within normal limits. Density along the left heart border is felt to represent epicard ial fat pad. No definite focal infiltrative process seen. IMPRESSION: No acute change is seen. POS: SHOAIB
== END 2019-09-18 09:20 | disposition home or self-care (01) ==
LOC: BICRAD 09:19
PROVIDERS: ATTEND Internal Medicine
DX: R91.8 Other nonspecific abnormal finding of lung field (principal)
CPT/HCPCS: 71046

== ENCOUNTER 2019-11-15 08:04 | Outpatient (CLI) | payer OTHER ==
[2019-11-16 12:32] LABS: SARS-CoV-2 MS2 Positive; SARS-CoV-2 N Gene Negative; SARS-CoV-2 S Gene Negative; SARS-CoV-2 by NAA Not Detected (NotDetected); SARS-CoV-2 orf1ab Negative
== END 2019-11-15 08:05 | disposition home or self-care (01) ==
LOC: LABBT 08:04
PROVIDERS: ATTEND Internal Medicine Gastroenterology
DX: Z20.828 Contact with and (suspected) exposure to other viral communicable diseases (principal)
CPT/HCPCS: 87635; U0003

== ENCOUNTER 2019-11-15 09:21 | Outpatient (CLI) | payer OTHER ==
--- NOTE | 2019-11-15 10:46 | ULT ---
HEPATIC ULTRASOUND WITH CURTIS SCALE AND COLOR FLOW AND SPECTRAL DOPPLER IMAGING: HISTORY: Hepatitis C, gastroesophageal reflux. COMPARISON: 04/26/2019. FINDINGS: The exam was limited due to patient's body habitus and having just eaten breakfast. The liver demonstrates increased echogenicity consistent with fatty infiltration and is enlarged yuriy uring 20.7 cm in length. The patient is post cholecystectomy. The spleen is mildly enlarged measuri ng 13.5 cm. The visualized portions of the pancreas are normal. The common bile duct, aorta, and IV C are not satisfactorily visualized due to overlying bowel gas. The visualized portions of the commo n bile duct measure 6 mm in diameter. The right portal vein is not seen. The remainder of the portal, hepatic, and splenic vasculature is otherwise patent with proper directional flow. No free fluid is seen. No hepatic mass or abnormal b iliary ductal dilatation is seen. IMPRESSION: 1. Hepatomegaly with steatosis. 2. Status post cholecystectomy. 3. Mild splenomegaly. POS: OFF
== END 2019-11-15 09:22 | disposition home or self-care (01) ==
LOC: SCSULT 09:21
PROVIDERS: ATTEND Physician Assistant Medical
DX: K21.9 Gastro-esophageal reflux disease without esophagitis (principal); R13.10 Dysphagia, unspecified; R16.2 Hepatomegaly with splenomegaly, not elsewhere classified; Z86.19 Personal history of other infectious and parasitic diseases; K76.0 Fatty (change of) liver, not elsewhere classified; Z90.49 Acquired absence of other specified parts of digestive tract
CPT/HCPCS: 76705

== ENCOUNTER 2019-11-19 07:56 | Day surgery (SDC) | payer OTHER ==
[2019-11-15 14:17] VITALS: BMI 52.9
[2019-11-19] MEDS ORDERED: PROPOFOL 200 MG/20 ML VIAL ONE (09:41)
[2019-11-19] MEDS ORDERED: Lidocaine 1% PF 5 ML VIAL ONE (09:41)
[2019-11-19] MEDS ORDERED: Albuterol Sulfate 2.5 mg/3 ml Neb ONE (09:52)
[2019-11-19] MEDS ORDERED: Albuterol Sulfate 2.5 mg/3 ml Neb NEB SCH (10:00)
--- NOTE | 2019-11-19 20:19 | OP ---
DATE OF PROCEDURE: 11/19/2019 PROCEDURE PERFORMED: Esophagogastroduodenoscopy with esophageal dilation and biopsy. PREOPERATIVE DIAGNOSIS: Esophageal dysphagia. DESCRIPTION OF PROCEDURE: Informed consent was obtained from the patient. He was sedated with total intravenous anesthesia. The bite block was placed and the endoscope was advanced easily to the second portion of the duodenum and retroflexion was performed in the stomach. The esophagus was normal. The GE junction was normal. The stomach was normal including retroflexed views except for a 6 mm polyp in the antrum a centimeter anterior to the pylorus. This was biopsied. The first and second portions of the duodenum were normal. The esophagus was dilated to 18 mm with a Savary dilator. The dilator passed through the esophagus easily over the guidewire without any resistance and second-look endoscopy revealed no change. Biopsies were taken from the proximal and distal esophagus to rule out eosinophilic esophagitis. However, there were no endoscopic findings to indicate this. The polyp appears more submucosal and had slight white apex and therefore biopsies were obtained to rule out carcinoid, but again this does not really look typical for carcinoid. IMPRESSION: 1. Small antrum polyp, biopsied. This appears more submucosal that has somewhat of a white apex and therefore biopsies were obtained to rule out a carcinoid. If the biopsies were negative, then this should require no further intervention. 2. Normal esophagus, status post dilation to 18 mm with a Savary dilator over a guidewire. There was no change in the esophagus on second look after the dilation. Biopsies were obtained from the proximal and distal esophagus to rule out eosinophilic esophagitis. RECOMMENDATIONS: 1. Await histopathology. 2. Follow up in GI clinic. Job ID: [id number]
== END 2019-11-19 11:25 | disposition home or self-care (01) ==
LOC: SDC 07:56
PROVIDERS: ATTEND Internal Medicine Gastroenterology
PROC: 0D568ZZ Destruction of Stomach, Via Natural or Artificial Opening Endoscopic (ICD-10-PCS; principal; 2019-11-19)
PROC: 0D758ZZ Dilation of Esophagus, Via Natural or Artificial Opening Endoscopic (ICD-10-PCS; principal; 2019-11-19)
PROC: 0DB78ZZ Excision of Stomach, Pylorus, Via Natural or Artificial Opening Endoscopic (ICD-10-PCS; principal; 2019-11-19)
DX: K31.7 Polyp of stomach and duodenum (principal); K21.9 Gastro-esophageal reflux disease without esophagitis; R13.19 Other dysphagia; Z79.899 Other long term (current) drug therapy
CPT/HCPCS: 88305; 88312; 88313; J2704; J7611

== ENCOUNTER 2019-11-27 10:50 | Outpatient (CLI) | payer OTHER ==
--- NOTE | 2019-11-27 11:58 | CT ---
FACIAL BONE CT WITH CONTRAST: HISTORY: Evaluate for abscess. Patient had a facial abscess last week on the left side of face. Previous too th extraction. COMPARISON: None. FINDINGS: Visually is brain parenchyma demonstrates appropriate enhancement. Bilateral ocular lenses are appropriately located. Both globes are intact. Retrobulbar fat is preserv ed. Symmetric attenuation of the optic nerves and ocular rectus muscles. There is mild mucosal thickening of the ethmoid air cells and maxillary sinuses, left greater than ri ght.. Visualized aerodigestive tract is patent. No obvious masses in the oral cavity. Midline fatty raphae of the tongue is preserved. Patient has had multiple tooth extractions. The patient has multiple dental caries. There is a subtle lucency involving the apex of the remaining left mandibular molar tooth. The associated osseous margins of the mandible do not demonstrate any obvious destruction or erosion. There is some mild thi nning of the medial margin of the mandible. The adjacent soft tissues demonstrate mild inflammatory change. There is no evidence of a soft tissue abscess. There does appear to be dehiscent/destruction involving the left maxilla with a small pocket of air. There appears to be dehiscence with extension into the floor of the associated left maxillary sinus (coronal image 31, series 5 and sagit [place] image 21, series 6). Bilateral ostiomeatal complexes are patent. There is an intact nasal septum with mild leftward deviat ion. Huma bullosa involving the left superior turbinate is noted. The osseous margins of the sinuses and orbits are maintained. No erosion, destruction hypertrophic ch casey. IMPRESSION: 1. Periapical lucency/abscess involving the remaining molar tooth in the left mandible. There is mild thinning of the medial margin of the mandible. There is no evidence of an abscess or significant inflammatory change in the adjacent gingival soft tissues or the overlying soft tissues of the face. 2. Mucosal thickening of the paranasal sinuses, greatest involving bilateral maxillary sinuses (left greater than right). 3. There appears to be a socket of a recently removed tooth involving the posterior left maxilla. The re appears be a defect that is in continuity with the socket of the tooth within the floor the left maxilla. Correlate for possible infectious process. No evidence of an associated soft tissue abscess. Transcribed Date/Time: 11/27/2019 12:34 PM
== END 2019-11-27 10:51 | disposition home or self-care (01) ==
LOC: BICCT 10:50
PROVIDERS: ATTEND Internal Medicine
DX: J01.00 Acute maxillary sinusitis, unspecified (principal); K04.7 Periapical abscess without sinus; J32.0 Chronic maxillary sinusitis
CPT/HCPCS: 70487

== ENCOUNTER 2019-12-03 08:20 | Outpatient (CLI) | payer OTHER ==
--- NOTE | 2019-12-03 10:47 | RAD ---
THREE VIEWS OF THE PARANASAL SINUSES: INDICATION: History of maxillary pain. COMPARISON: None. FINDINGS: There is mucosal thickening of the left maxillary sinus without a definite air fluid level. There is mild suspected mucosal thickening along the inferior aspect of the right maxillary sinus. The visua lized frontal sinus, ethmoid air cells, and visualized aspects of the sphenoid sinus appear clear. N o displaced fracture is evident. IMPRESSION: Mild paranasal sinus disease without evidence of an air-fluid level to suggest acute sinusitis. POS: BH
== END 2019-12-03 08:21 | disposition home or self-care (01) ==
LOC: BICRAD 08:20
PROVIDERS: ATTEND Internal Medicine
DX: R68.84 Jaw pain (principal); J34.89 Other specified disorders of nose and nasal sinuses
CPT/HCPCS: 70220

== ENCOUNTER 2020-05-20 08:12 | Outpatient (CLI) | payer OTHER | END 2020-05-20 08:13 | disposition home or self-care (01) | LOC: ULT 08:12 | PROVIDERS: ATTEND Physician Assistant Medical | DX: R13.10 Dysphagia, unspecified (principal); K21.9 Gastro-esophageal reflux disease without esophagitis; K76.6 Portal hypertension; R16.1 Splenomegaly, not elsewhere classified; K76.0 Fatty (change of) liver, not elsewhere classified; Z90.49 Acquired absence of other specified parts of digestive tract; Z86.19 Personal history of other infectious and parasitic diseases | CPT/HCPCS: 74220; 93975 ==

== ENCOUNTER 2020-07-17 07:57 | Outpatient (CLI) | payer OTHER | END 2020-07-17 07:58 | disposition home or self-care (01) | LOC: TBSIIMAG 07:57 | PROVIDERS: ATTEND Orthopaedic Surgery | DX: M25.512 Pain in left shoulder (principal); M75.122 Complete rotator cuff tear or rupture of left shoulder, not specified as traumatic; M19.012 Primary osteoarthritis, left shoulder ==

== ENCOUNTER 2021-01-14 14:39 | Outpatient (CLI) | payer OTHER | END 2021-01-14 14:40 | disposition home or self-care (01) | LOC: BICRAD 14:39 | PROVIDERS: ATTEND Nurse Practitioner Family | DX: R06.02 Shortness of breath (principal) | CPT/HCPCS: 71046 ==

== ENCOUNTER 2021-02-02 13:42 | Outpatient (CLI) | payer OTHER ==
[2021-02-02 14:30] LABS: #Basophils 0.1 10x3/uL (0.0-0.2); #Eosinphils 0.3 10x3/uL (0.0-0.5); #Monocytes 0.9 10x3/uL (0.0-1.1); #Neutrophils 5.4 10x3/uL (1.5-8.4); %Basophils 0.9 % (0.0-2.0); %Eosinophils 3.1 % (0.0-6.0); %Lymphocytes 23.4 % (18.0-47.0); %Monocytes 10.4 % (0.0-10.0); %Neutrophils 61.3 % (40.0-75.0); Hemoglobin 14.5 g/dL (13.5-17.5); Mean Corpuscular HGB CONC 31.9 g/dL (32.0-36.0); Mean Corpuscular Hemoglobin 27.6 pg (27.0-33.0); Mean Corpuscular Volume 86.5 fl (81.2-95.1); Mean Platelet Volume 10.8 fl (7.4-10.4); Platelet Count 227 10x3/uL (150-450); RBC Distribution Width 13.4 % (11.5-14.5); Red Blood Cell (RBC) Count 5.25 10x6/uL (4.32-5.72); White Blood Cell (WBC) Count 8.8 10x3/uL (3.5-10.5)
[2021-02-02 15:01] LABS: Anion Gap 15 mmol/L (10-20); BUN (Urea Nitrogen) 18 mg/dL (8.4-25.7); Calc. Creatinine Clearance 0 mL/min (70-130); Calcium 9.2 mg/dL (7.8-10.44); Carbon Dioxide 28 mmol/L (22-29); Chloride 101 mmol/L (98-107); Glucose 131 mg/dL (70-105); Potassium 4.5 mmol/L (3.5-5.1); Sodium 139 mmol/L (136-145)
[2021-02-03 09:08] LABS: SARS-CoV-2 PCR by NAA Not Detected (NotDetected)
== END 2021-02-02 13:43 | disposition home or self-care (01) ==
LOC: LABBT 13:42
PROVIDERS: ATTEND Orthopaedic Surgery
DX: Z01.812 Encounter for preprocedural laboratory examination (principal); M75.122 Complete rotator cuff tear or rupture of left shoulder, not specified as traumatic; Z20.822 Contact with and (suspected) exposure to COVID-19
CPT/HCPCS: 80048; 85025; U0003; U0005

== ENCOUNTER 2021-02-05 06:57 | Observation (INO) | payer OTHER ==
[2021-02-05] MEDS ORDERED: Albuterol Sulfate 1.25 MG/3 ML NEB ONE (07:21)
[2021-02-05] MEDS ORDERED: Midazolam HCl 2 mg/2 ml Vial ONE (07:24)
[2021-02-05] MEDS ORDERED: Fentanyl 100 MCG/2 ML VIAL ONE ×2 (07:24→08:20)
[2021-02-05] MEDS ORDERED: Lidocaine 1% PF 5 ML VIAL ONE ×2 (07:24→08:40)
[2021-02-05] MEDS ORDERED: ceFAZolin 2 GM/DEX 5% 100 ML BAG ONE (07:26)
[2021-02-05] MEDS ORDERED: Lidocaine 2% Jelly 5 ML TUBE ONE (08:21)
[2021-02-05] MEDS ORDERED: Ketamine 50 MG/ML (10ML VIAL) ONE (08:28)
[2021-02-05] MEDS ORDERED: Albuterol Sulfate HFA (OR ONLY) ONE ×3 (08:40→08:57)
[2021-02-05] MEDS ORDERED: PROPOFOL 200 MG/20 ML VIAL ONE (08:40)
[2021-02-05] MEDS ORDERED: ePHEDrine 50 MG/ML VIAL ONE (08:40)
[2021-02-05] MEDS ORDERED: Succinylcholine 200 MG/10 ml SYRINGE FS ONE (08:40)
[2021-02-05] MEDS ORDERED: Ondansetron PF 4 MG/2 ML Vial ONE (08:40)
[2021-02-05] MEDS ORDERED: Glycopyrrolate 0.2 MG/ML 5 ML SYRINGE ONE (08:40)
[2021-02-05] MEDS ORDERED: Dexamethasone 20 MG/5 ML VIAL ONE (08:40)
[2021-02-05] MEDS ORDERED: Ropivacaine 2% HCl/PF (20 MG/10 ML VIAL) ONE (08:40)
[2021-02-05] MEDS ORDERED: Rocuronium Bromide 10 MG/ML (10ML VIAL) ONE (08:40)
[2021-02-05] MEDS ORDERED: Phenylephrine 10 MG/ML VIAL ONE (08:40)
[2021-02-05] MEDS ORDERED: Ondansetron PF 4 MG/2 ML Vial IVP PRN (08:45)
[2021-02-05] MEDS ORDERED: Zolpidem Tartrate 5 MG TAB PO PRN (08:45)
[2021-02-05] MEDS ORDERED: HYDROcodone/Acetaminophen 5/325 mg Tablet PO PRN (08:45)
[2021-02-05] MEDS ORDERED: Promethazine HCl 25 MG/ML VIAL IM PRN ×2 (08:45→10:55)
[2021-02-05] MEDS ORDERED: traMADol HCl 50 MG TAB PO PRN (08:45)
[2021-02-05] MEDS ORDERED: Ropivacaine 0.2% 550 ML 550 ML NERVE BLCK SCH (08:45)
[2021-02-05] MEDS ORDERED: SUGAMMADEX SODIUM 200 MG/2 ML VIAL ONE (10:04)
[2021-02-05] MEDS ORDERED: Promethazine HCl 25 MG/ML VIAL IVPB PRN (10:55)
[2021-02-05] MEDS ORDERED: Ondansetron HCl/PF 4 MG/2 ML Vial IVP PRN (10:55)
[2021-02-05] MEDS ORDERED: Milk Of Magnesia 30 ML UDCUP PO PRN (11:11)
[2021-02-05] MEDS ORDERED: Acetaminophen 325 MG TAB PO PRN (11:11)
[2021-02-05] MEDS ORDERED: Methocarbamol 500 MG TAB PO PRN (11:11)
[2021-02-05] MEDS ORDERED: Bisacodyl 10 MG SUPP PR PRN (11:11)
[2021-02-05] MEDS ORDERED: diphenhydrAMINE 50 MG CAP PO PRN (11:11)
[2021-02-05] MEDS ORDERED: Methocarbamol 1 GM/10 ML VIAL SLOW IVP PRN (11:11)
[2021-02-05] MEDS: Fentanyl 100 MCG/2 ML VIAL SLOW IVP PRN ×2 (14:44→20:56)
[2021-02-05] MEDS: Lactated Ringer's 1,000 ML IV SCH ×2 (14:45→21:00)
[2021-02-05] MEDS: ceFAZolin Sodium/D5W 2 GM in Premix Bag 1 BAG IVPB SCH (14:46)
[2021-02-05 15:26] VITALS: BMI 50.8
[2021-02-05] MEDS: HYDROcodone/Acetaminophen 5/325 mg Tablet PO PRN ×2 (16:25→20:51)
[2021-02-05] MEDS: Gabapentin 300 MG CAP PO SCH (20:54)
[2021-02-05] MEDS: Famotidine 20 MG TAB PO SCH (20:54)
[2021-02-05] MEDS: Lisinopril/Hydrochlorothiazide 20/25 mg Tablet PO SCH (21:02)
[2021-02-05] MEDS: Carvedilol 25 MG TAB PO SCH (21:03)
[2021-02-06] MEDS: ceFAZolin Sodium/D5W 2 GM in Premix Bag 1 BAG IVPB SCH (00:47)
[2021-02-06] MEDS: HYDROcodone/Acetaminophen 5/325 mg Tablet PO PRN ×2 (00:51→14:48)
[2021-02-06] MEDS: Fentanyl 100 MCG/2 ML VIAL SLOW IVP PRN (02:07)
[2021-02-06] MEDS: traMADol HCl 50 MG TAB PO PRN ×2 (05:46→12:18)
[2021-02-06] MEDS ORDERED: Potassium Chloride 20 MEQ TAB PO SCH (08:00)
[2021-02-06] MEDS: Famotidine 20 MG TAB PO SCH (08:09)
[2021-02-06] MEDS: Carvedilol 25 MG TAB PO SCH (08:10)
[2021-02-06] MEDS: Lisinopril/Hydrochlorothiazide 20/25 mg Tablet PO SCH (08:10)
[2021-02-06] MEDS: Gabapentin 300 MG CAP PO SCH ×2 (08:10→14:48)
[2021-02-06] MEDS ORDERED: Furosemide 40 MG TAB PO SCH (09:00)
[2021-02-06] MEDS ORDERED: Simvastatin 10 MG TAB PO SCH (09:00)
[2021-02-06 11:31] VITALS: BP 162/72; TEMP 97.9
== END 2021-02-06 15:00 | disposition home or self-care (01) ==
LOC: SDC 06:57 → SJJU 11:11
PROVIDERS: ADMIT Orthopaedic Surgery; ATTEND Orthopaedic Surgery
PROC: 0LM20ZZ Reattachment of Left Shoulder Tendon, Open Approach (ICD-10-PCS; principal; 2021-02-05)
PROC: 0RQH0ZZ Repair Left Acromioclavicular Joint, Open Approach (ICD-10-PCS; 2021-02-05)
PROC: 3E0T3BZ Introduction of Anesthetic Agent into Peripheral Nerves and Plexi, Percutaneous Approach (ICD-10-PCS; 2021-02-05)
DX: M75.122 Complete rotator cuff tear or rupture of left shoulder, not specified as traumatic (principal); S46.212A Strain of muscle, fascia and tendon of other parts of biceps, left arm, initial encounter; M19.012 Primary osteoarthritis, left shoulder; G47.33 Obstructive sleep apnea (adult) (pediatric); I11.0 Hypertensive heart disease with heart failure; I50.9 Heart failure, unspecified; I25.10 Atherosclerotic heart disease of native coronary artery without angina pectoris; E78.5 Hyperlipidemia, unspecified; E11.9 Type 2 diabetes mellitus without complications; E66.01 Morbid (severe) obesity due to excess calories; Z68.43 Body mass index [BMI] 50.0-59.9, adult; Z87.891 Personal history of nicotine dependence; Z79.1 Long term (current) use of non-steroidal anti-inflammatories (NSAID); Z79.84 Long term (current) use of oral hypoglycemic drugs; Z79.899 Other long term (current) drug therapy; Z98.890 Other specified postprocedural states
CPT/HCPCS: 93005; 93010; 94640; 94660; 96367; 96375; 96376; A4306; C1713; G0378; J1100; J2250; J2370; J2405; J2704; J2795; J3010; J3490; J7120; J7620

== ENCOUNTER 2021-12-30 11:28 | Emergency (ER) | payer OTHER ==
[2021-12-30] MEDS ORDERED: Ketorolac Tromethamine 30 MG/ML VIAL ONE (12:23)
== END 2021-12-30 13:39 | disposition home or self-care (01) ==
LOC: ERS 11:28
DX: S12.291A Other nondisplaced fracture of third cervical vertebra, initial encounter for closed fracture (principal); S93.402A Sprain of unspecified ligament of left ankle, initial encounter; S43.402A Unspecified sprain of left shoulder joint, initial encounter; S20.212A Contusion of left front wall of thorax, initial encounter; I11.0 Hypertensive heart disease with heart failure; I50.9 Heart failure, unspecified; E78.5 Hyperlipidemia, unspecified; J44.9 Chronic obstructive pulmonary disease, unspecified; E11.9 Type 2 diabetes mellitus without complications; Z79.899 Other long term (current) drug therapy; W18.30XA Fall on same level, unspecified, initial encounter
CPT/HCPCS: 70450; 72125; 96372; J1885

== ENCOUNTER 2022-01-01 09:10 | Outpatient (CLI) | payer OTHER | END 2022-01-01 09:11 | disposition home or self-care (01) | LOC: TBSIIMAG 09:10 | PROVIDERS: ATTEND Nurse Practitioner Family | DX: M51.37 Other intervertebral disc degeneration, lumbosacral region (principal); M51.27 Other intervertebral disc displacement, lumbosacral region; M48.07 Spinal stenosis, lumbosacral region | CPT/HCPCS: 72148 ==

== ENCOUNTER 2022-09-30 15:02 | Inpatient (IN) | payer OTHER ==
[2022-09-30 16:06] LABS: #Basophils 0.1 thou/uL (0.0-0.2); #Eosinphils 0.1 thou/uL (0.0-0.7); #Monocytes 0.5 thou/uL (0.11-0.59); #Neutrophils 2.3 thou/uL (1.40-6.50); %Basophils 1.2 % (0.0-1.0); %Eosinophils 2.6 % (0.0-10.0); %Lymphocytes 29.4 % (21.0-51.0); %Monocytes 10.7 % (0.0-10.0); %Neutrophils 55.4 % (42.0-75.0); Mean Corpuscular HGB CONC 33.5 g/dL (32.0-36.0); Mean Corpuscular Hemoglobin 28.7 pg (27.0-31.0); Mean Corpuscular Volume 85.8 fl (78.0-98.0); Mean Platelet Volume 11.1 fL (7.4-10.4); Platelet Count 139 10x3/uL (130-400); Red Blood Cell (RBC) Count 4.87 mill/uL (4.70-6.10); White Blood Cell (WBC) Count 4.2 10x3/uL (4.8-10.8)
[2022-09-30 16:22] LABS: Bacteria/HPF None Seen HPF (None Seen); Bilirubin Negative (Negative); Blood, Urine Negative (Negative); CAUTI Indications for Culture Dysuria,urgency,freq; Clarity Clear (Clear); Glucose, Urine (Dipstick) Greater than 1000 mg/dL (Negative); Ketone, Urine Negative (Negative); Leukocyte Negative Leu/uL (Negative); Nitrite Negative (Negative); Protein, Urine (Dipstick) Negative (Neg-Trace); RBC/HPF 0-3 HPF (0-3); Specific Gravity, Urine 1.018 (1.002-1.036); Squamous Epithelial 0-3 HPF (0-3); Urobilinogen Normal mg/dL (Less than 2); WBC/HPF 0-3 HPF (0-3)
[2022-09-30 16:26] LABS: ALT (SGPT) 64 U/L (8-55); AST (SGOT) 49 U/L (5-34); Albumin 3.9 g/dL (3.5-5.0); Alkaline Phosphatase 148 U/L (40-110); Anion Gap 12 mmol/L (10-20); BUN (Urea Nitrogen) 24 mg/dL (8.4-25.7); Bilirubin, Total 0.5 mg/dL (0.2-1.2); Calc. Creatinine Clearance 0 mL/min (70-130); Calcium 9.2 mg/dL (7.8-10.44); Carbon Dioxide 27 mmol/L (22-29); Chloride 94 mmol/L (98-107); Estimated GFR 39; Globulin 3.3 g/dL (2.4-3.5); Potassium 4.1 mmol/L (3.5-5.1); Protein, Total 7.2 g/dL (6.0-8.3); Sodium 129 mmol/L (136-145)
[2022-09-30 16:30] LABS: Urine Culture Reflex No No
[2022-09-30 16:45] LABS: Glucose 611 mg/dL (70-105)
[2022-09-30 16:46] LABS: SARS-CoV-2 NAA Rapid Test Not Detected (NotDetected)
[2022-09-30 17:04] LABS: Actual Bicarbonate (HCO3v) 25.1 mEq/L (22-28); Base Excess -2.1 mEq/L (-2.0 to +3.0); Calcium, Ionized (venous) 1.17 mmol/L (1.16-1.32); Chloride (VBG) 93 mmol/L (98-106); Hematocrit-VBG 45 % (42.0-52.0); Hemoglobin (Hb) 15.2 g/dL (13.1-17.2); Potassium (VBG) 4.15 mmol/L (3.70-5.30); pH (venous) 7.297 (7.32-7.43)
[2022-09-30] MEDS ORDERED: Dextrose 50% Abboject 50 ML SYRINGE SLOW IVP PRN (18:05)
[2022-09-30] MEDS ORDERED: Dextrose 5% in Water 1,000 ML IV PRN (18:05)
[2022-09-30] MEDS ORDERED: Glucagon 1 MG/ML KIT IM PRN (18:05)
[2022-09-30] MEDS ORDERED: NS 0.9% w/ 20 MEQ KCL 1,000 ML IV PRN ×2 (18:06)
[2022-09-30] MEDS ORDERED: Dextrose 5 %-0.45 % NaCl 1,000 ML IV PRN (18:06)
[2022-09-30] MEDS ORDERED: Sodium Chloride 0.9% 1,000 ML IV PRN ×4 (18:06)
[2022-09-30] MEDS ORDERED: Electrolyte Replacement Protocol 1 EACH IVPB SCH (18:06)
[2022-09-30] MEDS ORDERED: D5 1/2 NS w/20 mEq KCL 1,000 ML IV PRN (18:06)
[2022-09-30] MEDS ORDERED: HUMULIN R 100 UNITS in Sodium Chloride 0.9% 100 ML IVPB SCH (18:15)
[2022-09-30] MEDS ORDERED: Ondansetron PF 4 MG/2 ML Vial IVP PRN (18:31)
[2022-09-30] MEDS ORDERED: Acetaminophen 325 MG TAB PO PRN (18:31)
[2022-09-30] MEDS ORDERED: Insulin Regular 300 UNITS/3 ML VIAL ONE (18:39)
[2022-09-30 19:51] VITALS: BMI 51.7
[2022-09-30 20:19] LABS: Anion Gap 11 mmol/L (10-20); BUN (Urea Nitrogen) 22 mg/dL (8.4-25.7); Calc. Creatinine Clearance 111 mL/min (70-130); Carbon Dioxide 23 mmol/L (22-29); Chloride 103 mmol/L (98-107); Estimated GFR 50; Glucose 326 mg/dL (70-105); Potassium 3.5 mmol/L (3.5-5.1); Sodium 133 mmol/L (136-145)
[2022-09-30] MEDS ORDERED: HumaLOG 300 UNITS/3 ML VIAL SC PRN ×2 (20:45)
[2022-09-30] MEDS ORDERED: Sodium Chloride 0.9% 1,000 ML IV SCH ×2 (21:00)
[2022-09-30] MEDS ORDERED: Insulin Glargine 30 UNITS/0.3 ML VIAL SC SCH (21:00)
[2022-09-30] MEDS ORDERED: Famotidine 20 MG TAB ONE (21:53)
[2022-09-30] MEDS: Famotidine 20 MG TAB PO SCH (21:56)
[2022-09-30 22:34] LABS: Anion Gap 14 mmol/L (10-20); BUN (Urea Nitrogen) 21 mg/dL (8.4-25.7); Calc. Creatinine Clearance 120 mL/min (70-130); Calcium 9.1 mg/dL (7.8-10.44); Carbon Dioxide 26 mmol/L (22-29); Chloride 99 mmol/L (98-107); Estimated GFR 54; Glucose 294 mg/dL (70-105); Potassium 3.8 mmol/L (3.5-5.1); Sodium 135 mmol/L (136-145)
[2022-09-30] MEDS ORDERED: Gabapentin 300 MG CAP PO SCH (23:59)
[2022-09-30] MEDS ORDERED: Acetaminophen 500 MG TAB PO SCH (23:59)
[2022-10-01 06:04] LABS: #Basophils 0.1 thou/uL (0.0-0.2); #Eosinphils 0.2 thou/uL (0.0-0.7); #Monocytes 0.4 thou/uL (0.11-0.59); #Neutrophils 2.1 thou/uL (1.40-6.50); %Basophils 1.6 % (0.0-1.0); %Eosinophils 3.7 % (0.0-10.0); %Lymphocytes 36.5 % (21.0-51.0); %Monocytes 9.9 % (0.0-10.0); %Neutrophils 47.8 % (42.0-75.0); Hemoglobin 13.2 g/dL (14.0-18.0); Mean Corpuscular HGB CONC 33.1 g/dL (32.0-36.0); Mean Corpuscular Hemoglobin 28.3 pg (27.0-31.0); Mean Corpuscular Volume 85.4 fl (78.0-98.0); Mean Platelet Volume 10.8 fL (7.4-10.4); Platelet Count 139 10x3/uL (130-400); RBC Distribution Width 13.2 % (11.5-14.5); Red Blood Cell (RBC) Count 4.67 mill/uL (4.70-6.10); White Blood Cell (WBC) Count 4.4 10x3/uL (4.8-10.8)
[2022-10-01 06:12] LABS: Hemoglobin A1c 11.6 % (4.0-6.0)
[2022-10-01 06:26] LABS: Anion Gap 17 mmol/L (10-20); BUN (Urea Nitrogen) 18 mg/dL (8.4-25.7); Calc. Creatinine Clearance 129 mL/min (70-130); Calcium 9.1 mg/dL (7.8-10.44); Carbon Dioxide 21 mmol/L (22-29); Chloride 101 mmol/L (98-107); Estimated GFR 59; Glucose 361 mg/dL (70-105); Potassium 3.9 mmol/L (3.5-5.1); Sodium 135 mmol/L (136-145)
[2022-10-01] MEDS ORDERED: glipiZIDE 5 MG TAB PO SCH ×2 (08:15→16:30)
[2022-10-01] MEDS: Famotidine 20 MG TAB PO SCH ×2 (08:43→08:46)
[2022-10-01] MEDS ORDERED: Gabapentin 300 MG CAP PO SCH (09:00)
[2022-10-01] MEDS ORDERED: Glucagon 1 MG/ML KIT IM PRN (09:45)
[2022-10-01] MEDS ORDERED: Dextrose 5% in Water 1,000 ML IV PRN (09:45)
[2022-10-01] MEDS ORDERED: Insulin Glargine 30 UNITS/0.3 ML VIAL SC SCH (09:45)
[2022-10-01] MEDS ORDERED: Dextrose 50% Abboject 50 ML SYRINGE IVP PRN (09:45)
[2022-10-01] MEDS ORDERED: Furosemide 40 MG TAB PO SCH (10:00)
[2022-10-01] MEDS ORDERED: Potassium Chloride 20 MEQ TAB PO SCH (10:00)
[2022-10-01 11:26] VITALS: BP 167/89; TEMP 98.8
== END 2022-10-01 11:37 | disposition home or self-care (01) | DRG 638 ==
LOC: ERS 15:02 → ERHOLD 18:32 → T4-A 22:32
PROVIDERS: ADMIT Internal Medicine; ATTEND Internal Medicine
DX: E11.65 Type 2 diabetes mellitus with hyperglycemia (principal); E87.1 Hypo-osmolality and hyponatremia; N17.9 Acute kidney failure, unspecified; I13.0 Hypertensive heart and chronic kidney disease with heart failure and stage 1 through stage 4 chronic kidney disease, or unspecified chronic kidney disease; Z20.822 Contact with and (suspected) exposure to COVID-19; E11.40 Type 2 diabetes mellitus with diabetic neuropathy, unspecified; E66.01 Morbid (severe) obesity due to excess calories; G47.33 Obstructive sleep apnea (adult) (pediatric); N18.30 Chronic kidney disease, stage 3 unspecified; E11.22 Type 2 diabetes mellitus with diabetic chronic kidney disease; E78.00 Pure hypercholesterolemia, unspecified; I50.9 Heart failure, unspecified; J44.9 Chronic obstructive pulmonary disease, unspecified; M54.9 Dorsalgia, unspecified; G89.29 Other chronic pain; Z79.82 Long term (current) use of aspirin; Z79.899 Other long term (current) drug therapy; Z98.890 Other specified postprocedural states; Z90.49 Acquired absence of other specified parts of digestive tract
CPT/HCPCS: 36415; 36416; 71045; 80048; 80053; 81001; 82010; 82805; 83036; 83930; 85025; 96361; 96374; J1650; J1815; J7050

== ENCOUNTER 2023-02-21 06:17 | Day surgery (SDC) | payer OTHER ==
[2023-02-18 10:31] VITALS: BMI 50.8
[2023-02-21] MEDS ORDERED: PROPOFOL 20 ML ONE (08:33)
[2023-02-21] MEDS ORDERED: fentaNYL 50 mcg/mL 1 mL Vial ONE (08:36)
== END 2023-02-21 09:48 | disposition home or self-care (01) ==
LOC: SDC 06:17
PROVIDERS: ATTEND Internal Medicine Gastroenterology
PROC: 0D758ZZ Dilation of Esophagus, Via Natural or Artificial Opening Endoscopic (ICD-10-PCS; principal; 2023-02-21)
DX: R13.10 Dysphagia, unspecified (principal); K21.9 Gastro-esophageal reflux disease without esophagitis; M19.90 Unspecified osteoarthritis, unspecified site; I50.9 Heart failure, unspecified; K76.6 Portal hypertension; I10 Essential (primary) hypertension; E78.00 Pure hypercholesterolemia, unspecified; Z79.899 Other long term (current) drug therapy; F17.210 Nicotine dependence, cigarettes, uncomplicated
CPT/HCPCS: J2704; J3010

== ENCOUNTER 2023-03-29 07:21 | Outpatient (CLI) | payer OTHER ==
[2023-03-29] MEDS ORDERED: Barium Sulfate 96% 176 GM BOT (xray ONLY) PO ONE (08:28)
[2023-03-29] MEDS ORDERED: E-Z-HD 98% W/W 340GM BOT (x-ray ONLY) ONE (08:28)
== END 2023-03-29 07:22 | disposition home or self-care (01) ==
LOC: ULT 07:21
PROVIDERS: ATTEND Nurse Practitioner
DX: K21.9 Gastro-esophageal reflux disease without esophagitis (principal); K76.6 Portal hypertension; R13.10 Dysphagia, unspecified; R19.7 Diarrhea, unspecified; K76.0 Fatty (change of) liver, not elsewhere classified; R16.2 Hepatomegaly with splenomegaly, not elsewhere classified; Z86.19 Personal history of other infectious and parasitic diseases
CPT/HCPCS: 74220; 76705

== ENCOUNTER 2023-04-10 10:32 | Emergency (ER) | payer OTHER ==
[2023-04-10] MEDS ORDERED: Ondansetron PF 4 MG/2 ML Vial ONE (11:08)
[2023-04-10] MEDS ORDERED: Morphine 4 MG/ML VIAL ONE (11:08)
[2023-04-10 11:30] LABS: #Eosinphils 0.2 thou/uL (0.0-0.7); #Monocytes 0.5 thou/uL (0.11-0.59); #Neutrophils 3.4 thou/uL (1.40-6.50); %Basophils 0.5 % (0.0-1.0); %Eosinophils 3.9 % (0.0-10.0); %Lymphocytes 25.9 % (21.0-51.0); %Monocytes 8.6 % (0.0-10.0); %Neutrophils 60.6 % (42.0-75.0); Hematocrit 43.7 % (42.0-52.0); Hemoglobin 14.2 g/dL (14.0-18.0); Mean Corpuscular HGB CONC 32.5 g/dL (32.0-36.0); Mean Corpuscular Hemoglobin 28.9 pg (27.0-31.0); Mean Platelet Volume 10.6 fL (7.4-10.4); Platelet Count 176 10x3/uL (130-400); RBC Distribution Width 13.9 % (11.5-14.5); Red Blood Cell (RBC) Count 4.91 mill/uL (4.70-6.10); White Blood Cell (WBC) Count 5.6 10x3/uL (4.8-10.8)
[2023-04-10 11:40] LABS: Bacteria/HPF None Seen HPF (None Seen); Bilirubin Negative (Negative); Blood, Urine Negative (Negative); CAUTI Indications for Culture Pelvic or flank pain; Clarity Clear (Clear); Glucose, Urine (Dipstick) Greater than 1000 mg/dL (Negative); Ketone, Urine Negative (Negative); Leukocyte Negative Leu/uL (Negative); Nitrite Negative (Negative); Protein, Urine (Dipstick) Negative (Neg-Trace); RBC/HPF 0-3 HPF (0-3); Specific Gravity, Urine 1.007 (1.002-1.036); Squamous Epithelial None Seen HPF (0-3); Urobilinogen Normal mg/dL (Less than 2); WBC/HPF 0-3 HPF (0-3)
[2023-04-10 11:41] LABS: Urine Culture Reflex No No
[2023-04-10 11:50] LABS: ALT (SGPT) 32 U/L (8-55); AST (SGOT) 18 U/L (5-34); Alkaline Phosphatase 106 U/L (40-110); Anion Gap 12 mmol/L (10-20); BUN (Urea Nitrogen) 20 mg/dL (8.4-25.7); Bilirubin, Total 0.5 mg/dL (0.2-1.2); Calc. Creatinine Clearance 0 mL/min (70-130); Calcium 8.7 mg/dL (7.8-10.44); Carbon Dioxide 26 mmol/L (22-29); Chloride 109 mmol/L (98-107); Estimated GFR 66; Globulin 2.8 g/dL (2.4-3.5); Glucose 223 mg/dL (70-105); Potassium 4.2 mmol/L (3.5-5.1); Protein, Total 6.8 g/dL (6.0-8.3); Sodium 143 mmol/L (136-145)
== END 2023-04-10 13:25 | disposition home or self-care (01) ==
LOC: ERS 10:32
DX: R10.30 Lower abdominal pain, unspecified (principal); E11.9 Type 2 diabetes mellitus without complications; E78.00 Pure hypercholesterolemia, unspecified; I11.0 Hypertensive heart disease with heart failure; I50.9 Heart failure, unspecified; E66.9 Obesity, unspecified; J44.9 Chronic obstructive pulmonary disease, unspecified; F17.210 Nicotine dependence, cigarettes, uncomplicated; Z79.899 Other long term (current) drug therapy
CPT/HCPCS: 74177; 80053; 81001; 85025; 96374; 96375; J2270; J2405

== ENCOUNTER 2023-04-29 07:14 | Observation (INO) | payer OTHER ==
[2023-04-26 16:57] VITALS: BMI 53.8
[2023-04-29 07:57] LABS: #Eosinphils 0.3 thou/uL (0.0-0.7); #Monocytes 0.7 thou/uL (0.11-0.59); #Neutrophils 3.6 thou/uL (1.40-6.50); %Basophils 0.6 % (0.0-1.0); %Lymphocytes 26.9 % (21.0-51.0); %Monocytes 10.8 % (0.0-10.0); %Neutrophils 56.2 % (42.0-75.0); Hematocrit 44.8 % (42.0-52.0); Hemoglobin 14.6 g/dL (14.0-18.0); Mean Corpuscular HGB CONC 32.6 g/dL (32.0-36.0); Mean Corpuscular Hemoglobin 28.8 pg (27.0-31.0); Mean Corpuscular Volume 88.4 fl (78.0-98.0); Platelet Count 172 10x3/uL (130-400); RBC Distribution Width 13.9 % (11.5-14.5); Red Blood Cell (RBC) Count 5.07 mill/uL (4.70-6.10); White Blood Cell (WBC) Count 6.5 10x3/uL (4.8-10.8)
[2023-04-29] MEDS ORDERED: Ondansetron ODT 4 MG TAB PO PRN (11:36)
[2023-04-29] MEDS ORDERED: Ondansetron PF 4 MG/2 ML Vial IVP PRN (11:36)
[2023-04-29] MEDS ORDERED: Acetaminophen 325 MG TAB PO PRN (11:36)
[2023-04-29] MEDS ORDERED: Albuterol 200 PUFF (6.7GM INHALER) INH PRN (11:59)
[2023-04-29] MEDS ORDERED: Albuterol 2.5 MG (3 mL) NEB NEB PRN (11:59)
[2023-04-29 12:42] LABS: Anion Gap 14 mmol/L (10-20); BUN (Urea Nitrogen) 16 mg/dL (8.4-25.7); Calc. Creatinine Clearance 162 mL/min (70-130); Carbon Dioxide 25 mmol/L (22-29); Chloride 105 mmol/L (98-107); Estimated GFR 80; Glucose 258 mg/dL (70-105); Phosphorus 2.7 mg/dL (2.3-4.7); Potassium 3.9 mmol/L (3.5-5.1); Sodium 140 mmol/L (136-145)
[2023-04-29] MEDS ORDERED: Glucagon 1 MG/ML KIT IM PRN (13:09)
[2023-04-29] MEDS ORDERED: Dextrose 50% Abboject 50 ML SYRINGE SLOW IVP PRN (13:09)
[2023-04-29] MEDS ORDERED: HumaLOG 300 UNITS/3 ML VIAL SC PRN ×2 (13:09)
[2023-04-29] MEDS ORDERED: Dextrose 5% in Water 1,000 ML IV PRN (13:09)
[2023-04-29] MEDS: Empagliflozin 25 MG TAB PO SCH (15:01)
[2023-04-29] MEDS: Simvastatin 10 MG TAB PO SCH (15:01)
[2023-04-29] MEDS: Gabapentin 300 MG CAP PO SCH (15:01)
[2023-04-29] MEDS: Loratadine 10 MG TAB PO SCH (15:01)
[2023-04-29] MEDS: Sodium Chloride 0.9% 1,000 ML IV SCH (15:03)
[2023-04-29] MEDS: HYDROcodone/Acetaminophen 5/325 mg Tablet PO PRN (16:52)
[2023-04-29 17:51] LABS: Bacteria/HPF None Seen HPF (None Seen); Bilirubin Negative (Negative); Blood, Urine Negative (Negative); CAUTI Indications for Culture Dysuria,urgency,freq; Clarity Clear (Clear); Glucose, Urine (Dipstick) Greater than 1000 mg/dL (Negative); Ketone, Urine Negative (Negative); Leukocyte Negative Leu/uL (Negative); Nitrite Negative (Negative); Protein, Urine (Dipstick) 20 mg/dL (Neg-Trace); RBC/HPF None Seen HPF (0-3); Specific Gravity, Urine 1.023 (1.002-1.036); Squamous Epithelial 0-3 HPF (0-3); Urobilinogen Normal mg/dL (Less than 2); WBC/HPF 0-3 HPF (0-3)
[2023-04-29 17:53] LABS: Urine Culture Reflex No No
[2023-04-29 18:10] LABS: Creatinine, Urine 86.42 mg/dL (63-166)
[2023-04-29] MEDS: Albuterol 2.5 MG (3 mL) NEB NEB SCH (19:51)
[2023-04-29] MEDS: Carvedilol 25 MG TAB PO SCH (20:15)
[2023-04-29] MEDS: Insulin Glargine 30 UNITS/0.3 ML VIAL SC SCH (20:15)
[2023-04-30 05:27] LABS: #Basophils 0.1 thou/uL (0.0-0.2); #Eosinphils 0.4 thou/uL (0.0-0.7); #Monocytes 0.8 thou/uL (0.11-0.59); #Neutrophils 4.3 thou/uL (1.40-6.50); %Basophils 0.8 % (0.0-1.0); %Lymphocytes 27.7 % (21.0-51.0); %Monocytes 10.7 % (0.0-10.0); %Neutrophils 55.3 % (42.0-75.0); Hematocrit 44.3 % (42.0-52.0); Hemoglobin 14.1 g/dL (14.0-18.0); Mean Corpuscular HGB CONC 31.8 g/dL (32.0-36.0); Mean Corpuscular Hemoglobin 28.4 pg (27.0-31.0); Mean Corpuscular Volume 89.1 fl (78.0-98.0); Mean Platelet Volume 10.4 fL (7.4-10.4); Platelet Count 181 10x3/uL (130-400); RBC Distribution Width 13.8 % (11.5-14.5); Red Blood Cell (RBC) Count 4.97 mill/uL (4.70-6.10); White Blood Cell (WBC) Count 7.8 10x3/uL (4.8-10.8)
[2023-04-30 05:55] LABS: Anion Gap 8 mmol/L (10-20); BUN (Urea Nitrogen) 18 mg/dL (8.4-25.7); Calc. Creatinine Clearance 176 mL/min (70-130); Calcium 8.8 mg/dL (7.8-10.44); Carbon Dioxide 25 mmol/L (22-29); Chloride 106 mmol/L (98-107); Estimated GFR 89; Glucose 126 mg/dL (70-105); Potassium 4.3 mmol/L (3.5-5.1); Sodium 135 mmol/L (136-145)
[2023-04-30 08:02] VITALS: TEMP 97.5
[2023-04-30] MEDS: Simvastatin 10 MG TAB PO SCH (09:46)
[2023-04-30] MEDS: Empagliflozin 25 MG TAB PO SCH (09:46)
[2023-04-30] MEDS: Loratadine 10 MG TAB PO SCH (09:47)
[2023-04-30 12:21] VITALS: BP 149/74
== END 2023-04-30 17:44 | disposition home or self-care (01) ==
LOC: SDC 07:14 → SURG A 11:40
PROVIDERS: ADMIT Orthopaedic Surgery Hand Surgery; ATTEND Orthopaedic Surgery Hand Surgery
DX: M18.12 Unilateral primary osteoarthritis of first carpometacarpal joint, left hand (principal); I13.0 Hypertensive heart and chronic kidney disease with heart failure and stage 1 through stage 4 chronic kidney disease, or unspecified chronic kidney disease; I50.9 Heart failure, unspecified; N18.4 Chronic kidney disease, stage 4 (severe); D63.1 Anemia in chronic kidney disease; R94.4 Abnormal results of kidney function studies; E11.22 Type 2 diabetes mellitus with diabetic chronic kidney disease; E66.9 Obesity, unspecified; E78.00 Pure hypercholesterolemia, unspecified; D64.9 Anemia, unspecified; F14.10 Cocaine abuse, uncomplicated; J44.9 Chronic obstructive pulmonary disease, unspecified; Z98.890 Other specified postprocedural states; Z98.49 Cataract extraction status, unspecified eye; Z68.43 Body mass index [BMI] 50.0-59.9, adult; Z79.899 Other long term (current) drug therapy
CPT/HCPCS: 36415; 36416; 76770; 80048; 81001; 82570; 83880; 84100; 84156; 84300; 85025; 93970; 94640; G0378; J1815; J7050; J7611

== ENCOUNTER 2023-05-13 08:13 | Outpatient (CLI) | payer OTHER | END 2023-05-13 08:14 | disposition home or self-care (01) | LOC: BICRAD 08:13 | PROVIDERS: ATTEND Nurse Practitioner Family | DX: M79.89 Other specified soft tissue disorders (principal) ==

== ENCOUNTER 2023-06-02 08:05 | Outpatient (CLI) | payer OTHER | END 2023-06-02 08:06 | disposition home or self-care (01) | LOC: RAD 08:05 | PROVIDERS: ATTEND Internal Medicine Critical Care Medicine | DX: R06.00 Dyspnea, unspecified (principal) | CPT/HCPCS: 71046 ==

== ENCOUNTER 2023-11-28 21:40 | Inpatient (IN) | payer OTHER ==
[2023-11-28 22:01] LABS: #Basophils 0.06 10x3/uL (0.0-0.2); %Basophils 0.7 % (0.0-1.0); %Neutrophils 66.7 % (42.0-75.0); Hematocrit 44.4 % (42.0-52.0); Hemoglobin 14.5 g/dL (14.0-18.0); Mean Corpuscular HGB CONC 32.7 g/dL (32.0-36.0); Mean Corpuscular Hemoglobin 27.8 pg (27.0-31.0); Mean Corpuscular Volume 85.2 fL (78.0-98.0); Platelet Count 184 10x3/uL (130-400); RBC Distribution Width 14.6 % (11.5-14.5); Red Blood Cell (RBC) Count 5.21 mill/uL (4.70-6.10)
[2023-11-28 22:24] LABS: ALT (SGPT) 22 U/L (8-55); AST (SGOT) 17 U/L (5-34); Albumin 3.6 g/dL (3.5-5.0); Alkaline Phosphatase 170 U/L (40-110); Anion Gap 11 mmol/L (10-20); BUN (Urea Nitrogen) 16 mg/dL (8.4-25.7); Bilirubin, Total 0.4 mg/dL (0.2-1.2); Calc. Creatinine Clearance 0 mL/min (70-130); Calcium 8.9 mg/dL (7.8-10.44); Carbon Dioxide 25 mmol/L (22-29); Chloride 109 mmol/L (98-107); Estimated GFR 88; Globulin 3.6 g/dL (2.4-3.5); Glucose 128 mg/dL (70-105); Potassium 4.4 mmol/L (3.5-5.1); Protein, Total 7.2 g/dL (6.0-8.3); Sodium 141 mmol/L (136-145)
[2023-11-28] MEDS ORDERED: hydrALAZINE 20 MG/ML VIAL SLOW IVP PRN (23:47)
[2023-11-28] MEDS ORDERED: Ipratropium/Albuterol 3 ML NEB NEB PRN (23:47)
[2023-11-28] MEDS ORDERED: Sodium Chloride 0.9% 100 ML ONE (23:50)
[2023-11-28] MEDS ORDERED: cefTRIAXone (ROCEPHIN) 2 GM VIAL ONE (23:50)
[2023-11-28] MEDS ORDERED: Furosemide 40 MG (4 mL) VIAL ONE (23:50)
[2023-11-28] MEDS ORDERED: cefTRIAXone (ROCEPHIN) 1 GM VIAL ONE (23:52)
[2023-11-28] MEDS ORDERED: Senokot S 8.6-50 MG TAB PO PRN (23:58)
[2023-11-28] MEDS ORDERED: Acetaminophen 325 MG TAB PO PRN ×2 (23:58)
[2023-11-28] MEDS ORDERED: Ondansetron PF 4 MG/2 ML Vial IVP PRN ×2 (23:58)
[2023-11-28] MEDS ORDERED: Ondansetron ODT 4 MG TAB PO PRN ×2 (23:58)
[2023-11-29] MEDS: traMADol HCl 50 MG TAB PO PRN (01:15)
[2023-11-29 01:35] VITALS: BMI 54.4
[2023-11-29] MEDS ORDERED: Dextrose 5% in Water 1,000 ML IV PRN (04:14)
[2023-11-29] MEDS ORDERED: Glucagon 1 MG/ML KIT IM PRN (04:14)
[2023-11-29] MEDS ORDERED: Dextrose 50% Abboject 50 ML SYRINGE SLOW IVP PRN (04:14)
[2023-11-29] MEDS ORDERED: Ipratropium/Albuterol 3 ML NEB NEB PRN (04:25)
[2023-11-29] MEDS: HYDROcodone/Acetaminophen 5/325 mg Tablet PO PRN (06:21)
[2023-11-29] MEDS: Furosemide 40 MG (4 mL) VIAL SLOW IVP SCH (06:22)
[2023-11-29] MEDS: Carvedilol 25 MG TAB PO SCH (08:42)
[2023-11-29] MEDS: Famotidine 20 MG TAB PO SCH (08:42)
[2023-11-29] MEDS: Enoxaparin 40 MG (0.4 mL) SYRINGE SC SCH (08:42)
[2023-11-29] MEDS: Aspirin 81 mg Enteric Coated Tablet PO SCH (08:43)
[2023-11-29] MEDS: Nitroglycerin 2% Ointment 1 INCH/1 GM Packet TOP SCH (08:43)
[2023-11-29] MEDS ORDERED: Nitroglycerin 2% Ointment 1 INCH/1 GM Packet TOP SCH (09:00)
[2023-11-29] MEDS: Gabapentin 300 MG CAP PO SCH (10:32)
[2023-11-29] MEDS: glipiZIDE 5 MG TAB PO SCH (10:32)
[2023-11-29] MEDS: Lisinopril 20 MG TAB PO SCH (10:33)
[2023-11-29 10:53] LABS: #Basophils 0.06 10x3/uL (0.0-0.2); %Basophils 0.8 % (0.0-1.0); %Eosinophils 3.1 % (0.0-10.0); %Lymphocytes 23.1 % (21.0-51.0); %Monocytes 9.3 % (0.0-10.0); %Neutrophils 63.3 % (42.0-75.0); Hematocrit 43.5 % (42.0-52.0); Mean Corpuscular HGB CONC 32.2 g/dL (32.0-36.0); Mean Corpuscular Hemoglobin 27.9 pg (27.0-31.0); Mean Corpuscular Volume 86.8 fL (78.0-98.0); Mean Platelet Volume 10.9 fL (7.4-10.4); Platelet Count 197 10x3/uL (130-400); RBC Distribution Width 14.7 % (11.5-14.5); Red Blood Cell (RBC) Count 5.01 mill/uL (4.70-6.10)
[2023-11-29 11:14] LABS: ALT (SGPT) 21 U/L (8-55); AST (SGOT) 14 U/L (5-34); Albumin 3.4 g/dL (3.5-5.0); Alkaline Phosphatase 123 U/L (40-110); Anion Gap 10 mmol/L (10-20); BUN (Urea Nitrogen) 19 mg/dL (8.4-25.7); Bilirubin, Total 0.6 mg/dL (0.2-1.2); Calc. Creatinine Clearance 188 mL/min (70-130); Calcium 8.9 mg/dL (7.8-10.44); Carbon Dioxide 28 mmol/L (22-29); Chloride 105 mmol/L (98-107); Estimated GFR 95; Globulin 3.3 g/dL (2.4-3.5); Glucose 140 mg/dL (70-105); Potassium 3.6 mmol/L (3.5-5.1); Protein, Total 6.7 g/dL (6.0-8.3); Sodium 139 mmol/L (136-145)
[2023-11-29 11:24] LABS: Troponin I 0.026 ng/mL (< 0.028)
[2023-11-29 14:25] LABS: Troponin I 0.023 ng/mL (< 0.028)
[2023-11-29] MEDS: Atorvastatin Calcium 40 MG TAB PO SCH (21:31)
[2023-11-29] MEDS: Insulin Glargine 30 UNITS/0.3 ML VIAL SC SCH (21:32)
[2023-11-30 07:45] LABS: Anion Gap 12 mmol/L (10-20); BUN (Urea Nitrogen) 21 mg/dL (8.4-25.7); Calc. Creatinine Clearance 198 mL/min (70-130); Calcium 8.9 mg/dL (7.8-10.44); Carbon Dioxide 27 mmol/L (22-29); Chloride 106 mmol/L (98-107); Estimated GFR 100; Glucose 112 mg/dL (70-105); Potassium 4.1 mmol/L (3.5-5.1); Sodium 141 mmol/L (136-145)
[2023-11-30] MEDS: Carvedilol 6.25 MG TAB PO SCH (08:51)
[2023-11-30] MEDS: Empagliflozin 25 MG TAB PO SCH (08:54)
[2023-11-30] MEDS: Furosemide 40 MG TAB PO SCH (11:42)
[2023-11-30] MEDS: Diclofenac 1% 50 GM TOPICAL GEL TP PRN (17:00)
[2023-11-30] MEDS: Insulin Lispro 100 UNIT/ML 10 ML VIAL SC PRN (17:16)
[2023-12-01] MEDS: Insulin Glargine 30 UNITS/0.3 ML VIAL SC SCH (21:07)
[2023-12-01] MEDS: Insulin Lispro 100 UNIT/ML 10 ML VIAL SC PRN (21:10)
[2023-12-02 09:10] VITALS: TEMP 98.2
[2023-12-02] MEDS: Carvedilol 6.25 MG TAB PO SCH (09:14)
[2023-12-02] MEDS ORDERED: Carvedilol 6.25 MG TAB PO SCH ×2 (09:15→21:00)
[2023-12-02 14:15] VITALS: BP 135/79
== END 2023-12-02 15:23 | disposition home or self-care (01) | DRG 280 ==
LOC: ERS 21:40 → IMCU/EMU 23:08 → 2NO 11-30 14:36
PROVIDERS: ADMIT Student in an Organized Health Care Education/Training Program; ATTEND Internal Medicine
DX: I11.0 Hypertensive heart disease with heart failure (principal); I50.33 Acute on chronic diastolic (congestive) heart failure; I21.A1 Myocardial infarction type 2; J96.01 Acute respiratory failure with hypoxia; I16.1 Hypertensive emergency; E66.2 Morbid (severe) obesity with alveolar hypoventilation; Z68.43 Body mass index [BMI] 50.0-59.9, adult; E11.9 Type 2 diabetes mellitus without complications; G89.29 Other chronic pain; M54.9 Dorsalgia, unspecified; F17.290 Nicotine dependence, other tobacco product, uncomplicated; J44.9 Chronic obstructive pulmonary disease, unspecified; Z99.89 Dependence on other enabling machines and devices; Z79.84 Long term (current) use of oral hypoglycemic drugs; Z79.899 Other long term (current) drug therapy; Z79.1 Long term (current) use of non-steroidal anti-inflammatories (NSAID); I25.10 Atherosclerotic heart disease of native coronary artery without angina pectoris; Z90.49 Acquired absence of other specified parts of digestive tract; R00.1 Bradycardia, unspecified; F14.10 Cocaine abuse, uncomplicated; I42.8 Other cardiomyopathies
CPT/HCPCS: 36415; 36416; 71045; 80048; 80053; 83735; 83880; 84145; 84443; 84484; 85025; 93005; 93306; 93798; 94660; 96374; 96375; J0696; J1650; J1815; J1940

== ENCOUNTER 2023-12-12 06:43 | Outpatient (CLI) | payer OTHER | END 2023-12-12 06:44 | disposition home or self-care (01) | LOC: BICULT 06:43 | PROVIDERS: ATTEND Internal Medicine Gastroenterology | DX: K76.0 Fatty (change of) liver, not elsewhere classified (principal); K59.00 Constipation, unspecified | CPT/HCPCS: 76705 ==

== ENCOUNTER 2025-01-06 14:19 | Emergency (ER) | payer OTHER, SELFPAY ==
[2025-01-06 16:35] LABS: #Basophils 0.08 10x3/uL (0.0-0.2); #Eosinophils 0.27 10x3/uL (0.0-0.7); #Monocytes 0.91 10x3/uL (0.11-0.59); #Neutrophils 5.97 10x3/uL (1.40-6.50); %Basophils 0.9 % (0.0-1.0); %Eosinophils 3.2 % (0.0-10.0); %Lymphocytes 14.6 % (21.0-51.0); %Monocytes 10.6 % (0.0-10.0); %Neutrophils 69.9 % (42.0-75.0); Hematocrit 45.3 % (42.0-52.0); Hemoglobin 14.5 g/dL (14.0-18.0); Mean Corpuscular Hemoglobin 27.3 pg (27.0-31.0); Mean Corpuscular Volume 85.3 fL (78.0-98.0); Platelet Count 193 10x3/uL (130-400); Red Blood Cell (RBC) Count 5.31 mill/uL (4.70-6.10); White Blood Cell (WBC) Count 8.55 10x3/uL (4.8-10.8)
[2025-01-06] MEDS ORDERED: Furosemide 40 MG (4 mL) VIAL ONE (16:48)
[2025-01-06] MEDS ORDERED: Nitroglycerin 2% Ointment 1 INCH/1 GM Packet ONE (16:48)
[2025-01-06 16:51] LABS: ALT (SGPT) 66 U/L (Less than 45); AST (SGOT) 69 U/L (11-34); Albumin 4.0 g/dL (3.1-4.5); Alkaline Phosphatase 111 U/L (40-110); Anion Gap 16 mmol/L (10-20); BUN (Urea Nitrogen) 15 mg/dL (8.4-25.7); Bilirubin, Total 0.6 mg/dL (0.3-1.2); Calc. Creatinine Clearance 0 mL/min (70-130); Calcium 9.0 mg/dL (7.8-10.44); Carbon Dioxide 23 mmol/L (22-29); Chloride 104 mmol/L (98-107); Globulin 3.2 g/dL (2.4-3.5); Glucose 130 mg/dL (70-105); Potassium 4.2 mmol/L (3.5-5.1); Sodium 139 mmol/L (136-145)
== END 2025-01-06 17:30 | disposition home or self-care (01) ==
LOC: ERS 14:19
DX: I13.0 Hypertensive heart and chronic kidney disease with heart failure and stage 1 through stage 4 chronic kidney disease, or unspecified chronic kidney disease (principal); I50.9 Heart failure, unspecified; N18.9 Chronic kidney disease, unspecified; E11.22 Type 2 diabetes mellitus with diabetic chronic kidney disease; J44.9 Chronic obstructive pulmonary disease, unspecified; E78.5 Hyperlipidemia, unspecified; E66.01 Morbid (severe) obesity due to excess calories; K21.9 Gastro-esophageal reflux disease without esophagitis; F17.210 Nicotine dependence, cigarettes, uncomplicated; Z79.899 Other long term (current) drug therapy; Z79.84 Long term (current) use of oral hypoglycemic drugs; Z79.51 Long term (current) use of inhaled steroids
CPT/HCPCS: 71045; 80053; 83880; 84484; 85025; 93005; 96374; J1940